=== PATIENT | female | born 1950 | race Caucasian/White ===

== ENCOUNTER 2018-09-15 14:11 | Emergency (ER) | payer OTHER ==
[~2018-09-15] VITALS: Ht 170.2 cm; Wt 80.3 kg
[2018-09-15 14:26] VITALS: BP 142/88
--- NOTE | 2018-09-15 14:45 | NUR ---
STATES SHE HAS BEEN HAVING UTI SYMPTOMS FOR 2 DAYS. DENIES N/V/D; SKIN IS PINK/WARM/DRY; AAOX4 WITH EVEN AND STEADY GAIT; LUNGS CLEAR BL; HR EVEN AND REGULAR; PT DENIES ANY FEVER, CP, SOB, OR COUGH AT THIS TIME; PATIENT STATES PAIN OF 0/10 AT THIS TIME; VSS; PATIENT POSITIONED FOR COMFORT; HOB ELEVATED; BEDRAILS UP X2; BED DOWN. ER MD MADE AWARE OF PT STATUS.
--- NOTE | 2018-09-15 16:00 | NUR ---
NO NEEDS STATED AT THIS TIME.
[2018-09-15 16:36] LABS: APPEARANCE,URINE SLIGHTLY CLOUDY (CLEAR); BILIRUBIN,URINE NEGATIVE (NEGATIVE); BLOOD, URINE NEGATIVE (NEGATIVE); COLOR,URINE YELLOW (YELLOW); LEUKOCYTE ESTERASE ,URINE 2+ (NEGATIVE); NITRITE, URINE POSITIVE (NEGATIVE); UGLUCOSE NEGATIVE (NEGATIVE)
[2018-09-15 16:48] LABS: RBC,URINE 0-5 (RARE) /HPF (0-5); WBC,URINE >25 (MANY) /HPF (0-5)
[2018-09-15 17:52] VITALS: BP 142/88
--- NOTE | 2018-09-15 17:52 | NUR ---
Patient discharged with v/s stable. Written and verbal after care instructions given and explained. Patient alert, oriented and verbalized understanding of instructions. Ambulatory with steady gait. All questions addressed prior to discharge. ID band removed. Patient advised to follow up with PMD. Rx of NITROFURANTOIN given. Patient educated on indication of medication including possible reaction and side effects. Opportunity to ask questions provided and answered.
== END 2018-09-15 17:52 | disposition home or self-care (01) ==
LOC: MED 14:11
DX: N39.0 Urinary tract infection, site not specified (principal); E11.9 Type 2 diabetes mellitus without complications; Z85.43 Personal history of malignant neoplasm of ovary; Z85.850 Personal history of malignant neoplasm of thyroid
CPT/HCPCS: 81001; 82948; 87086; 99283

== ENCOUNTER 2019-06-20 22:13 | Emergency (ER) | payer OTHER ==
[~2019-06-20] VITALS: Ht 167.6 cm; Wt 80.7 kg
[2019-06-20 22:18] VITALS: BP 137/83
--- NOTE | 2019-06-20 22:21 | NUR ---
PT AMBULATED TO BED #3
--- NOTE | 2019-06-20 22:22 | NUR ---
69/F PRESENTED TO ED WITH C/O MUSCLE SPASMS X1 HOUR GENERALIZED TO BODY. NO PAIN REPORTED AT THIS TIME. EVEN UNLABORED BREATH SOUNDS. VITALS WNL. NO SIGNS OF DISTRESS. ABLE TO MAKE NEEDS KNOWN. DAUGHTER AT BEDSIDE. URINE CUP LEFT AT BEDSIDE FOR UA COLLECTION. PMH DM, LIVER CIRRHOSIS, HTN RX- SPIRONOLACTONE, HYDRALAZINE
[2019-06-20] MEDS ORDERED: POTASSIUM CHLORIDE 10 MEQ TABER PO ONE ×2 (22:25→22:30)
[2019-06-20 22:40] LABS: APPEARANCE,URINE CLEAR (CLEAR); BILIRUBIN,URINE NEGATIVE (NEGATIVE); BLOOD, URINE NEGATIVE (NEGATIVE); COLOR,URINE YELLOW (YELLOW); LEUKOCYTE ESTERASE ,URINE NEGATIVE (NEGATIVE); NITRITE, URINE NEGATIVE (NEGATIVE); UGLUCOSE 3+ (NEGATIVE)
[2019-06-20 23:06] VITALS: BP 137/83
--- NOTE | 2019-06-20 23:06 | NUR ---
Patient discharged with v/s stable. Written and verbal after care instructions given and explained. Patient alert, oriented and verbalized understanding of instructions. Ambulatory with steady gait. All questions addressed prior to discharge. ID band removed. Patient advised to follow up with PMD. Rx of POTASSIUM CHLORIDE 20MEQ given. Patient educated on indication of medication including possible reaction and side effects. Opportunity to ask questions provided and answered.
== END 2019-06-20 23:06 | disposition home or self-care (01) ==
LOC: MED 22:13
DX: E87.6 Hypokalemia (principal); Z85.43 Personal history of malignant neoplasm of ovary; Z85.850 Personal history of malignant neoplasm of thyroid; Z86.39 Personal history of other endocrine, nutritional and metabolic disease
CPT/HCPCS: 81003; 99283

== ENCOUNTER 2019-09-04 19:18 | Inpatient (IN) | payer OTHER ==
[~2019-09-04] VITALS: Ht 167.6 cm; Wt 81.2 kg
[2019-09-04 19:40] VITALS: BP 160/68
--- NOTE | 2019-09-04 19:43 | NUR ---
TO LOBBY A/W BED AMBULATORY
--- NOTE | 2019-09-04 20:04 | NUR ---
PT AMBULATED TO BED 1.
--- NOTE | 2019-09-04 20:10 | NUR ---
69 Y/O FEMALE PRESENTS TO ED, C/O RECTAL BLEEDING THAT STARTED TODAY. PT DENIES ANY ABDOMIMAL PAIN. PT STATES BLOOD IS DARK RED. DENIES ANY PAIN URINATING. BS ACTIVE X4 QUADRANTS. DENIES N/V/D. PT VSS. ERMD AWARE. WILL CONTINUE TO MONITOR.
--- NOTE | 2019-09-04 20:15 | NUR ---
69 Y/O FEMALE PRESENTS TO ED, C/O RECTAL BLEEDING THAT STARTED AROUND 1700. PT STATES BLOOD IS DARK RED. PT DENIES ANY ABDOMINAL PAIN. NO N/V/D, PER PT. NO MEDICATIONS TAKEN PRIOR COMING TO ED. PT STATES "THIS IS THE FIRST TIME IT HAS HAPPENED TO ME." PT DENIES ANY DIZZINESS/HEADACHE. PT VSS. PLACED ON MONITOR. ERMD AWARE. WILL CONTINUE TO MONITOR.
[2019-09-04] MEDS ORDERED: NACL 0.9% 1,000 ML IV ONE (20:21)
[2019-09-04] MEDS ORDERED: ONDANSETRON 4 MG/2 ML VIAL IVP ONE (20:25)
[2019-09-04] MEDS ORDERED: MORPHINE SULFATE 4 MG/ML SYR IVP ONE (20:25)
[2019-09-04 20:49] LABS: BASOPHILS % (AUTO) 0.8 % (0.0-2.0); EOSINOPHILS # (AUTO) 0.1 K/uL (0-0.4); EOSINOPHILS % (AUTO) 2.1 % (0.0-4.0); HEMATOCRIT 34.2 % (36-48); HEMOGLOBIN 11.4 g/dL (12.0-16.0); LYMPHOCYTES % (AUTO) 24.9 % (20.5-51.1); MEAN CORPUSCULAR HEMOGLOBIN 32 pg (27-31); MEAN CORPUSCULAR HGB CONC 33 g/dL (33-37); MEAN CORPUSCULAR VOLUME 94.7 fL (80-94); MONOCYTES # (AUTO) 0.3 K/uL (0.8-1.0); MONOCYTES % (AUTO) 8.4 % (1.7-9.3); NEUTROPHILS # (AUTO) 2.6 K/uL (1.8-7.7); NEUTROPHILS % (AUTO) 63.8 % (42.2-75.2); PLATELET COUNT (AUTO) 53 K/uL (140-450); RED BLOOD CELL COUNT(AUTO) 3.61 MIL/uL (4.20-5.40); RED CELL DISTRIBUTION WIDTH 14.7 % (11.6-13.7)
--- NOTE | 2019-09-04 20:57 | NUR ---
URINE COLLECTED AND SENT TO LAB AT THIS TIME
[2019-09-04 21:08] LABS: APPEARANCE,URINE CLEAR (CLEAR); BILIRUBIN,URINE NEGATIVE (NEGATIVE); BLOOD, URINE 3+ (NEGATIVE); COLOR,URINE YELLOW (YELLOW); LEUKOCYTE ESTERASE ,URINE NEGATIVE (NEGATIVE); NITRITE, URINE POSITIVE (NEGATIVE); UGLUCOSE 1+ (NEGATIVE)
[2019-09-04 21:13] LABS: HYALINE CASTS, URINE 0-10 /LPF (None Seen); WBC,URINE 0-5 /HPF (0-5)
[2019-09-04 21:27] LABS: ALBUMIN 3.3 g/dL (3.4-5.0); CARBON DIOXIDE 22.6 mmol/L (21-32); CREATININE 0.7 mg/dL (0.6-1.3)
[2019-09-04 21:28] LABS: PROTHROMBIN TIME 11.2 secs (10.8-13.4)
[2019-09-04 21:51] LABS: ANION GAP 14.6 (8-16); POTASSIUM 4.2 mmol/L (3.5-5.1)
[2019-09-04 21:52] LABS: TOTAL BILIRUBIN 1.9 mg/dL (0.0-1.0)
[2019-09-05] MEDS ORDERED: metroNIDAZOLE 500 MG/NS PREMIX 100 ML IV ONE (01:10)
[2019-09-05] MEDS ORDERED: LEVOFLOXACIN 750 MG/D5W PREMIX 150 ML IV ONE (01:10)
[2019-09-05] MEDS ORDERED: SPIR50TA PO (01:23)
[2019-09-05] MEDS ORDERED: CHOL200035 PO (01:24)
[2019-09-05] MEDS ORDERED: ERGO2000 PO (01:25)
[2019-09-05] MEDS ORDERED: LEVO100P IV (01:26)
[2019-09-05] MEDS ORDERED: FERR325E14 PO (01:26)
[2019-09-05] MEDS: DEXT 5% / NACL 0.45% 1,000 ML IV SCH ×3 (01:26→21:26)
[2019-09-05] MEDS ORDERED: ACETAMINOPHEN 325 MG TAB PO PRN (01:30)
[2019-09-05] MEDS ORDERED: CYCL10TA13 PO (01:30)
[2019-09-05] MEDS ORDERED: LANTUS SUBQ (01:34)
[2019-09-05] MEDS ORDERED: HUM SUBQ (01:36)
[2019-09-05 02:51] LABS: BARBITURATE, URINE NEG. ng/ml (NEG <=200); BENZODIAZEPINE, URINE NEG. ng/mL (NEG <=200); CANNABINOID, URINE POS. ng/mL (NEG <=50); COCAINE, URINE NEG. ng/mL (NEG <=300); OPIATE, URINE NEG. ng/mL (NEG <=2000); PHENCYCLIDINE SCREEN,URINE NEG. ng/mL (NEG <=25)
[2019-09-05 03:04] LABS: CHOL/HDL RATIO 3.4 (1-4.5); MAGNESIUM 1.7 mg/dL (1.8-2.4); THYROID STIMULATING HORMONE 5.1 uIU/mL (0.34-3.74)
--- NOTE | 2019-09-05 03:27 | NUR ---
X-Ray at bedside.
--- NOTE | 2019-09-05 03:50 | NUR ---
PT ADMITTED TO [facility] ROOM 126B. TRANSFERRED PT VIA GURNEY; STABLE CONDITION. NOTIFIED RN OF FLAGYL STILL INFUSING. REPORT GIVEN TO RECEIVING RN. TRANSFER OF CARE AT THIS TIME.
[2019-09-05 04:00] VITALS: BP 158/76
--- NOTE | 2019-09-05 04:00 | NUR ---
Patient's Plan of Care was discussed and reviewed with ALLERGIST: MARGARET MONCADA.
--- NOTE | 2019-09-05 04:00 | NUR ---
Admitted from ER TO TELEMETRY UNIT, with chief complaint of RECTAL BLEEDING, THAT STARTED YESTERDAY AT 1700, DESCRIBED COLORED RED, ABLE TO USED 2 PADS. 69 y/o ,Female, Cooperative, AWAKE, A/OX4. RESPIRATION EVEN AND UNLABORED. AMBULATORY BY HERSELF. HEAD TO TOE ASSESSMENT DONE WITH CHARGE NURSE CHRISTINE, NOTED HEMATOMA AT THE LEFT LATERAL SIDE OF THE BACK DUE TO S/P FALL IN THE BATHROOM LAST MONDAY WHEN PATIENT SLIPPED DUE TO WATER ON THE FLOOR. DENIES PAIN 0/10. oriented to call light, bed, phone,television, bathroom, smoking policy, visiting hours, procedures, ID bracelet on. Belongings list checked.
[2019-09-05 04:33] LABS: PHOSPHORUS 3.4 mg/dL (2.5-4.9)
[2019-09-05] MEDS: HYDROcodone/APAP 7.5/325 MG 1 TAB PO PRN ×4 (05:45→22:20)
--- NOTE | 2019-09-05 05:45 | NUR ---
VOMITED SMALL AMOUNT OF SOLIDS, MEDICATED WITH ZOFRAN BY MORGAN PALACIO.
[2019-09-05] MEDS: ONDANSETRON 4 MG/2 ML VIAL IVP PRN (05:46)
--- NOTE | 2019-09-05 06:45 | NUR ---
NO N/V NOTED. WILL ENDORSE TO AM SHIFT NURSE FOR CONTINUITY OF CARE.
--- NOTE | 2019-09-05 07:20 | NUR ---
RECEIVED PT FROM TRAVELING CLERK NURSEMARGARET, PT IS AWAKE AND SEATED ON THE BED WITH SIDE RAISL UP AND CALL LIGHT WITHIN REACH, IV LINE ON THE RT FA G. 22 WITH D5 1/2 NS INFUSING AT 50ML/HR, INTACT, PT VERBALIZED A TOLERABLE BACK PAIN OF 3/0, NO OTHER UNTOWARD S/S NOTED, WILL MONITOR PT.
--- NOTE | 2019-09-05 07:25 | NUR ---
DR. NAVARRETE CAME TO PT'S ROOM AND IS TALKING TO PT NOW REGARDING PLAN OF CARE.
[2019-09-05 08:00] VITALS: BP 153/68
[2019-09-05] MEDS: FAMOTIDINE 20 MG TAB PO SCH (08:52)
[2019-09-05] MEDS: DOCUSATE SODIUM 100 MG GELCAP PO SCH ×2 (08:52→21:57)
--- NOTE | 2019-09-05 08:52 | NUR ---
PT IS AWAKE AND RESTING ON THE BED, ORAL AM MEDICATIONS WERE GIVEN AND TOLERATED IT, WILL MONITOR PT.
--- NOTE | 2019-09-05 09:01 | NUR ---
PATIENT HAS BEEN SCREENED AND CATEGORIZED MODERATE NUTRITION RISK. PATIENT WILL BE SEEN WITHIN 3-5 DAYS OF ADMISSION. 09/07/19 09/09/[address]
--- NOTE | 2019-09-05 10:45 | NUR ---
PT IS AWAKE AND TALKING TO DAUGHTER NOW AND DENIES PAIN.
[2019-09-05 12:00] VITALS: BP 128/75
--- NOTE | 2019-09-05 12:13 | NUR ---
Late entry. Confirmed with RN that Levofloxacin IV completed at 0320
[2019-09-05] MEDS: metroNIDAZOLE 500 MG/NS PREMIX 100 ML IV SCH ×2 (12:38→21:58)
--- NOTE | 2019-09-05 12:38 | NUR ---
PT WAS GIVEN FLAGYL VIA PIGGYBACK, DAUGHTER ON THE BEDSIDE, WILL MONITOR PT.
[2019-09-05] MEDS ORDERED: DEXTROSE 50% 50 ML SYR IVP PRN (13:20)
[2019-09-05] MEDS ORDERED: INSULIN LISPRO SLIDING SCALE 100 UNITS/ML VIAL SUBQ PRN (13:20)
[2019-09-05] MEDS ORDERED: MAG SULF 2000 MG/WATER PREMIX 50 ML IV SCH (15:00)
[2019-09-05 16:00] VITALS: BP 136/66
[2019-09-05] MEDS: BLOOD GLUCOSE MONITORING 1 DEV DEV FS SCH ×2 (17:20→21:58)
--- NOTE | 2019-09-05 17:20 | NUR ---
PT WAS GIVEN MAGNESIUM SULFATE 2GM NOW VIA IV FOR MG LEVEL OF 1.6, BLOOD GLUCOSWE CHECK DONE AND IS 136 AND NO INSULIN COVERAGE NEEDED. WILL MONITOR PT.
[2019-09-05 17:44] LABS: MONOCYTES # (AUTO) 0.3 K/uL (0.8-1.0); PLATELET COUNT (AUTO) 45 K/uL (140-450); RED CELL DISTRIBUTION WIDTH 14.8 % (11.6-13.7); WHITE BLOOD COUNT (AUTO) 3.4 K/uL (4.8-10.8)
[2019-09-05 17:52] LABS: BASOPHILS % (AUTO) 0.8 % (0.0-2.0); EOSINOPHILS # (AUTO) 0.1 K/uL (0-0.4); EOSINOPHILS % (AUTO) 2.2 % (0.0-4.0); HEMOGLOBIN 10.6 g/dL (12.0-16.0); LYMPHOCYTES # (AUTO) 0.8 K/uL (2.5-16.5); MEAN CORPUSCULAR HEMOGLOBIN 32 pg (27-31); MEAN CORPUSCULAR HGB CONC 34 g/dL (33-37); MEAN CORPUSCULAR VOLUME 94.4 fL (80-94); MONOCYTES % (AUTO) 8.7 % (1.7-9.3); NEUTROPHILS # (AUTO) 2.2 K/uL (1.8-7.7); NEUTROPHILS % (AUTO) 65.3 % (42.2-75.2); RED BLOOD CELL COUNT(AUTO) 3.28 MIL/uL (4.20-5.40)
[2019-09-05 17:57] LABS: ANION GAP 13.7 (8-16); CARBON DIOXIDE 24.1 mmol/L (21-32); CREATININE 0.7 mg/dL (0.6-1.3); POTASSIUM 3.8 mmol/L (3.5-5.1)
[2019-09-05 18:01] LABS: MAGNESIUM 1.5 mg/dL (1.8-2.4); PHOSPHORUS 3.3 mg/dL (2.5-4.9)
--- NOTE | 2019-09-05 19:15 | NUR ---
ENDORSED PT TO TUMBLING AND ROLLING SUPERVISOR REGISTRY NURSE FOR CONTINUITY OF CARE. PT IS TALKING TO DR. ZEPEDA NOW.
[2019-09-05 20:00] VITALS: BP 127/51
[2019-09-05] MEDS ORDERED: BISACODYL 5 MG TABEC PO SCH (20:00)
[2019-09-05] MEDS ORDERED: SUPREP BOWEL PREP KIT 354 ML SOLN.RECON PO SCH (20:30)
[2019-09-05] MEDS ORDERED: LACTULOSE 20 GM/30 ML UDC PO SCH (20:30)
[2019-09-05] MEDS ORDERED: SUPREP BOWEL PREP KIT 354 ML SOLN.RECON PO ONE (21:00)
[2019-09-05] MEDS: CYCLOBENZAPRINE 10 MG TAB PO SCH (21:57)
[2019-09-05] MEDS: SPIRONOLACTONE 25 MG TAB PO SCH (21:57)
[2019-09-05] MEDS ORDERED: SODIUM PHOSPHATE 118 ML ENEM RC SCH (23:00)
[2019-09-06] MEDS ORDERED: MAGNESIUM CITRATE 300 ML BTL PO SCH (01:00)
[2019-09-06] MEDS ORDERED: BISACODYL 5 MG TABEC PO SCH ×2 (01:00→07:30)
[2019-09-06] MEDS ORDERED: LEVOFLOXACIN 750 MG/D5W PREMIX 150 ML IV SCH (02:00)
[2019-09-06 04:00] VITALS: BP 142/68
[2019-09-06] MEDS: ONDANSETRON 4 MG/2 ML VIAL IVP PRN (04:03)
[2019-09-06] MEDS: BLOOD GLUCOSE MONITORING 1 DEV DEV FS SCH ×2 (05:16→11:30)
[2019-09-06] MEDS: metroNIDAZOLE 500 MG/NS PREMIX 100 ML IV SCH ×2 (05:17→13:19)
[2019-09-06] MEDS ORDERED: LEVOTHYROXINE 0.025 MG TAB ONE (06:21)
[2019-09-06] MEDS ORDERED: LEVOTHYROXINE 0.1 MG TAB ONE (06:22)
[2019-09-06] MEDS ORDERED: LEVOTHYROXINE 0.112 MG TAB PO SCH (06:30)
[2019-09-06] MEDS ORDERED: LEVOTHYROXINE 0.1 MG, LEVOTHYROXINE 0.025 MG PO SCH ×2 (06:30)
--- NOTE | 2019-09-06 07:00 | NUR ---
RECEIVE REPORT FROM NIGHT NURSE, PT IS STABLE, RESPIRATIONS ARE EVEN AND UNLABORED, IV INTACT, RUNNING D51/2NS AT 50 ML/H, INTRODUCE SELF, SAFETY MEASURES IN PLACE.
[2019-09-06] MEDS ORDERED: diphenhydrAMINE 50 MG/ML VIAL ONE ×2 (07:09→11:45)
[2019-09-06] MEDS ORDERED: MIDAZOLAM 2 MG/2 ML VIAL ONE ×2 (07:09→11:45)
[2019-09-06] MEDS ORDERED: fentaNYL 0.05 MG/ML VIAL ONE ×2 (07:09→11:46)
--- NOTE | 2019-09-06 07:40 | NUR ---
GAVE PT ORDERED MEDICATION, PT EDUCATION GIVEN, PT TOLERATED WELL
[2019-09-06] MEDS ORDERED: SUPREP BOWEL PREP KIT 354 ML SOLN.RECON PO SCH (07:45)
[2019-09-06 08:00] VITALS: BP 142/67
[2019-09-06] MEDS ORDERED: LEVOTHYROXINE SODIUM 100 MCG VIAL IV SCH (08:00)
[2019-09-06] MEDS ORDERED: FERROUS SULFATE 325 MG TABEC PO SCH (08:00)
[2019-09-06] MEDS ORDERED: INSULIN LANTUS 100 UNITS/ML 10 ML VIAL SUBQ SCH (09:00)
[2019-09-06] MEDS: DOCUSATE SODIUM 100 MG GELCAP PO SCH (09:13)
[2019-09-06] MEDS: CYCLOBENZAPRINE 10 MG TAB PO SCH (09:13)
[2019-09-06] MEDS: SPIRONOLACTONE 25 MG TAB PO SCH (09:13)
[2019-09-06] MEDS: FAMOTIDINE 20 MG TAB PO SCH (09:14)
--- NOTE | 2019-09-06 09:50 | NUR ---
GAVE PT ORDERED MEDICATION, PT EDUCATION GIVEN, PT TOLERATED IT WELL
[2019-09-06] MEDS: DEXT 5% / NACL 0.45% 1,000 ML IV SCH (10:49)
[2019-09-06] MEDS ORDERED: MAG SULF 2000 MG/WATER PREMIX 50 ML IV ONE (11:35)
[2019-09-06] MEDS: HYDROcodone/APAP 7.5/325 MG 1 TAB PO PRN (11:37)
--- NOTE | 2019-09-06 11:55 | NUR ---
PT OFF UNIT FOR COLONOSCOPY
[2019-09-06 12:00] VITALS: BP 145/80
[2019-09-06] MEDS ORDERED: SODIUM PHOSPHATE 118 ML ENEM RC SCH (12:00)
--- NOTE | 2019-09-06 12:15 | NUR ---
PT BACK IN ROOM, PT IS STABLE, WILL CONTINUE TO MONITOR
[2019-09-06] MEDS ORDERED: MIDAZOLAM 2 MG/2 ML VIAL IV ONE (12:35)
[2019-09-06] MEDS ORDERED: fentaNYL 0.05 MG/ML VIAL IVP ONE (12:35)
[2019-09-06 13:27] LABS: ANION GAP 15.1 (8-16); CARBON DIOXIDE 22.2 mmol/L (21-32); CREATININE 0.8 mg/dL (0.6-1.3); POTASSIUM 4.3 mmol/L (3.5-5.1)
[2019-09-06 13:32] LABS: MAGNESIUM 1.9 mg/dL (1.8-2.4); PHOSPHORUS 3.1 mg/dL (2.5-4.9)
--- NOTE | 2019-09-06 15:05 | NUR ---
LANCE CREWMEMBER/MLRS SERGEANT assessment/discharge plan High Risk DC Screen Yes Name: Tori Reyna Home Relationship: daughter Pre-Admission Living Arrangements: Lives with Other Other: son: Ricardo Reyna and graddaughter Prior ADL Independent Current Home Health Name/Tel: N/A Current DME/02 Name/Tel: N/A Current Hospice Name/Tel: N/A Current Dialysis Name/Tel: N/A Healthcare Decision Maker: Patient Advance Directive No Information Taught: Community Resources Person Taught: Children Patient Teaching Tools: Community Resources Verbal Factors Affecting Learning: None Participation Level: Active Evaluation: Gestures Understanding Verbalizes Understanding Educator: CINDI Powell Discipline: Case Mgt/Social Svcs Tentative Discharge Plan Summary: Patient is a 69 year old female admitted for back pain. I met with patient and patient's daughter Tori Reyna at bedside. Patient alert and oriented x4. Patient lives at home with her son Ricardo and granddaughter. Patient plans to return home upon discharge. Patient goes to [place] [phone] for medical care and is considering inquiring if Dereje Nunez can be her pcp. She does not have any difficulty filling her prescriptions at pharmacy. He stated she thinks she has been depressed due her 's loss 1 year ago. She denied SI and HI. She is not taking medication for depression or receiving counseling/mental health services. I provided her with education on [facility] www.[employer].org for community resources including counseling/mental health services. She denied alcohol/substance abuse. They do not have any questions/concerns at this time. I provided Tori with my contact information. Delicatessen Slicer and/or Gel Coater will follow up as needed. Signature: CINDI Powell Date: Sep 06, 2019
--- NOTE | 2019-09-06 16:19 | NUR ---
PATIENT APPEARS RELAXED WALKING IN ROOM. ALERT AND ORIENTED. DISCHARGE INSTRUCTIONS PROVIDED TO THE PATIENT AND THE FAMILY. INSTRUCTED TO FOLLOW UP WITHIN 1-2 WEEKS WITH PCP. VERBALIZED UNDERSTANDING. REMOVED IV CANNULA, NO BLEEDING NOTED FROM THE SITE. COVERED WITH DRESSING. ID BAND REMOVED. BELONGINGS TAKEN WITH PATIENT AND FAMILY. WHEEL CHAIRED TO PRIVATE VEHICLE BY PRIMARY NURSE THIAGO ON STABLE CONDITION.
== END 2019-09-06 16:30 | disposition home or self-care (01) | DRG 378 ==
LOC: MED 19:18 → MMU 09-05 01:32
PROVIDERS: ADMIT Family Medicine; ATTEND Family Medicine
PROC: 0DJD8ZZ Inspection of Lower Intestinal Tract, Via Natural or Artificial Opening Endoscopic (ICD-10-PCS; principal; 2019-09-06 08:00)
DX: K57.31 Diverticulosis of large intestine without perforation or abscess with bleeding (principal); D68.59 Other primary thrombophilia; R18.8 Other ascites; E11.65 Type 2 diabetes mellitus with hyperglycemia; K72.90 Hepatic failure, unspecified without coma; D64.9 Anemia, unspecified; E03.9 Hypothyroidism, unspecified; E11.9 Type 2 diabetes mellitus without complications; K62.5 Hemorrhage of anus and rectum; K74.60 Unspecified cirrhosis of liver; K52.9 Noninfective gastroenteritis and colitis, unspecified; E83.42 Hypomagnesemia; K76.0 Fatty (change of) liver, not elsewhere classified; Z90.710 Acquired absence of both cervix and uterus; Z85.850 Personal history of malignant neoplasm of thyroid; Z83.3 Family history of diabetes mellitus; Z82.49 Family history of ischemic heart disease and other diseases of the circulatory system; Z82.3 Family history of stroke
CPT/HCPCS: 36415; 71045; 80048; 80053; 80305; 81001; 82140; 82948; 83036; 83605; 83690; 83735; 83880; 84100; 84443; 84484; 85025; 85610; 85730; 86886; 86900; 86901; 87040; 87081; 96361; 96365; 96375; 99285; J1200; J1815; J1956; J2250; J2270; J2405; J3010; J3475; J3490; J7030; Q0092

== ENCOUNTER 2019-12-03 16:23 | Emergency (ER) | payer OTHER ==
[~2019-12-03] VITALS: Ht 170.2 cm; Wt 76.7 kg
[~2019-12-03 16:23] MED LIST: CHOL200035 PO; CYCL10TA13 PO; ERGO2000 PO; FERR325E14 PO; HUM SUBQ; LANTUS SUBQ; LEVO100P IV; SPIR50TA PO
[2019-12-03 16:34] VITALS: BP 157/75
[2019-12-03] MEDS ORDERED: NACL 0.9% 1,000 ML IV SCH (17:04)
[2019-12-03 17:42] LABS: BASOPHILS % (AUTO) 0.5 % (0.0-2.0); HEMATOCRIT 34.8 % (36-48); HEMOGLOBIN 12.1 g/dL (12.0-16.0); LYMPHOCYTES # (AUTO) 0.6 K/uL (2.5-16.5); LYMPHOCYTES % (AUTO) 17.8 % (20.5-51.1); MEAN CORPUSCULAR HEMOGLOBIN 33 pg (27-31); MEAN CORPUSCULAR HGB CONC 35 g/dL (33-37); MEAN CORPUSCULAR VOLUME 95.5 fL (80-94); MONOCYTES # (AUTO) 0.4 K/uL (0.8-1.0); MONOCYTES % (AUTO) 11.5 % (1.7-9.3); NEUTROPHILS # (AUTO) 2.3 K/uL (1.8-7.7); NEUTROPHILS % (AUTO) 69.2 % (42.2-75.2); PLATELET COUNT (AUTO) 38 K/uL (140-450); RED BLOOD CELL COUNT(AUTO) 3.65 MIL/uL (4.20-5.40); RED CELL DISTRIBUTION WIDTH 13.9 % (11.6-13.7); WHITE BLOOD COUNT (AUTO) 3.4 K/uL (4.8-10.8)
[2019-12-03 17:55] LABS: PROTHROMBIN TIME 11.9 secs (10.8-13.4)
[2019-12-03 18:02] LABS: ANION GAP 11.4 (8-16); CARBON DIOXIDE 24.5 mmol/L (21-32); CREATININE 0.9 mg/dL (0.6-1.3); POTASSIUM 3.9 mmol/L (3.5-5.1); TOTAL BILIRUBIN 2.3 mg/dL (0.0-1.0)
[2019-12-03 19:10] VITALS: BP 152/70
== END 2019-12-03 19:11 | disposition home or self-care (01) ==
LOC: MED 16:23
DX: K64.9 Unspecified hemorrhoids (principal); E11.9 Type 2 diabetes mellitus without complications; Z79.899 Other long term (current) drug therapy; Z90.49 Acquired absence of other specified parts of digestive tract; Z85.43 Personal history of malignant neoplasm of ovary; Z79.4 Long term (current) use of insulin; Z90.710 Acquired absence of both cervix and uterus; Z85.850 Personal history of malignant neoplasm of thyroid
CPT/HCPCS: 36415; 80053; 83690; 85025; 85610; 85730; 86886; 86900; 86901; 99283; J7030

== ENCOUNTER 2021-03-01 12:39 | Emergency (ER) | payer OTHER ==
[~2021-03-01] VITALS: Ht 167.6 cm; Wt 78.0 kg
[2021-03-01 12:46] VITALS: BP 137/65
--- NOTE | 2021-03-01 12:56 | NUR ---
PATIENT AMBULATED TO BED 09
--- NOTE | 2021-03-01 13:09 | NUR ---
70/F presents to ED with c/o abdominal pain. Patient states since yesterday she has been having 6/10 constant lower abdominal pain that is non radiating, accompanied with nausea and states she had one episode of vomiting yesterday, denies diarrhea. Patient states she is prescribed Trulicity, stating she has the same symptoms every time she takes it, states she started "three weeks ago." Patient denies taking anything at home for pain, placed in gown. Denies dysuria or hematuria.
--- NOTE | 2021-03-01 13:38 | NUR ---
LAB AT BEDSIDE
[2021-03-01 14:00] LABS: BASOPHILS # (AUTO) 0.1 K/uL (0.00-0.22); BASOPHILS % (AUTO) 0.6 % (0.0-2.0); EOSINOPHILS # (AUTO) 0.1 K/uL (0-0.4); EOSINOPHILS % (AUTO) 1.2 % (0.0-4.0); HEMATOCRIT 36.4 % (36-48); HEMOGLOBIN 12.7 g/dL (12.0-16.0); LYMPHOCYTES # (AUTO) 1.5 K/uL (2.5-16.5); LYMPHOCYTES % (AUTO) 17.4 % (20.5-51.1); MEAN CORPUSCULAR HEMOGLOBIN 35 pg (27-31); MEAN CORPUSCULAR HGB CONC 35 g/dL (33-37); MEAN CORPUSCULAR VOLUME 99.1 fL (80-94); MONOCYTES # (AUTO) 0.8 K/uL (0.8-1.0); MONOCYTES % (AUTO) 9.2 % (1.7-9.3); NEUTROPHILS # (AUTO) 6.2 K/uL (1.8-7.7); NEUTROPHILS % (AUTO) 71.6 % (42.2-75.2); PLATELET COUNT (AUTO) 64 K/uL (140-450); RED BLOOD CELL COUNT(AUTO) 3.67 MIL/uL (4.20-5.40); WHITE BLOOD COUNT (AUTO) 8.6 K/uL (4.8-10.8)
[2021-03-01 14:09] LABS: APPEARANCE,URINE CLEAR (CLEAR); BILIRUBIN,URINE NEGATIVE (NEGATIVE); BLOOD, URINE NEGATIVE (NEGATIVE); COLOR,URINE YELLOW (YELLOW); LEUKOCYTE ESTERASE ,URINE NEGATIVE (NEGATIVE); NITRITE, URINE NEGATIVE (NEGATIVE); UGLUCOSE NEGATIVE (NEGATIVE)
[2021-03-01 14:28] LABS: ALBUMIN 3.8 g/dL (3.4-5.0); ANION GAP 13.1 (8-16); CARBON DIOXIDE 25.1 mmol/L (21-32); CREATININE 0.9 mg/dL (0.6-1.3); POTASSIUM 4.2 mmol/L (3.5-5.1); TOTAL BILIRUBIN 5.5 mg/dL (0.0-1.0)
[2021-03-01 16:39] LABS: FREE T4 (FREE THYROXINE) 0.95 ng/dL (0.76-1.46); THYROID STIMULATING HORMONE 18.25 uIU/mL (0.34-3.74)
[2021-03-01 17:03] VITALS: BP 131/50
--- NOTE | 2021-03-01 17:04 | NUR ---
Patient discharged with v/s stable. Written and verbal after care instructions given and explained. Patient verbalized understanding. Ambulatory with steady gait. All questions addressed prior to discharge. Advised to follow up with PMD.
== END 2021-03-01 17:04 | disposition home or self-care (01) ==
LOC: MED 12:39
DX: R10.9 Unspecified abdominal pain (principal); R11.0 Nausea; E11.9 Type 2 diabetes mellitus without complications; Z87.448 Personal history of other diseases of urinary system; Z85.43 Personal history of malignant neoplasm of ovary
CPT/HCPCS: 36415; 80053; 81003; 83690; 84439; 84443; 85025; 99284

== ENCOUNTER 2021-03-08 09:27 | Inpatient (IN) | payer OTHER ==
[~2021-03-08] VITALS: Ht 167.6 cm; Wt 78.0 kg
--- NOTE | 2021-03-08 09:32 | NUR ---
Patient ambulated with steady gait to bed 9.
[2021-03-08 09:39] VITALS: BP 154/73
--- NOTE | 2021-03-08 09:49 | NUR ---
DR PATTERSON BEDSIDE EVAULUTING PT
--- NOTE | 2021-03-08 09:49 | NUR ---
70 Y/O F BIB DAUGHTER FROM HOME, C/O TREMBLING, GENERALIZED WEAKNESS, STARTING TO FORGET BASIC NEEDS SINCE YESTERDAY. UPON ASSESSMENT, PT HAS NO FACIAL DEFICIT, UPPER AND LOWER EXTREMITIES. PT IS CURRENTLY A&OX3 TO NAME, , TIME. PT STATES SHE HAS BEEN FEELING NAUSEA AND HAS EXPERIENCED DIARRHEA X1 TIME. BLOOD SUGAR TAKEN BEDSIDE AND 216. MADE AWARE PMH: DM2, LIVER CIRRHOSIS, HYPOTHYROID MED: LEVOTHYROXINE NKA
--- NOTE | 2021-03-08 09:57 | NUR ---
Pt ambulated to restroom for UA collection.
--- NOTE | 2021-03-08 10:01 | NUR ---
Pt ambulated to ER bed 9.
--- NOTE | 2021-03-08 10:05 | NUR ---
PT TAKEN TO CT VIA W/C
--- NOTE | 2021-03-08 10:15 | NUR ---
PT RETURNED FROM CT VIA W/C
--- NOTE | 2021-03-08 10:34 | NUR ---
Blood sample, urine sample collected, walked to lab and handed to CPT Dewayne.
[2021-03-08 10:40] LABS: APPEARANCE,URINE CLEAR (CLEAR); BASOPHILS % (AUTO) 0.7 % (0.0-2.0); BILIRUBIN,URINE NEGATIVE (NEGATIVE); BLOOD, URINE TRACE-I (NEGATIVE); COLOR,URINE YELLOW (YELLOW); EOSINOPHILS % (AUTO) 1.1 % (0.0-4.0); HEMATOCRIT 38.4 % (36-48); HEMOGLOBIN 13.4 g/dL (12.0-16.0); LEUKOCYTE ESTERASE ,URINE NEGATIVE (NEGATIVE); LYMPHOCYTES # (AUTO) 0.5 K/uL (2.5-16.5); LYMPHOCYTES % (AUTO) 12.8 % (20.5-51.1); MEAN CORPUSCULAR HEMOGLOBIN 35 pg (27-31); MEAN CORPUSCULAR HGB CONC 35 g/dL (33-37); MEAN CORPUSCULAR VOLUME 99.5 fL (80-94); MONOCYTES # (AUTO) 0.2 K/uL (0.8-1.0); MONOCYTES % (AUTO) 5.7 % (1.7-9.3); NEUTROPHILS # (AUTO) 3.4 K/uL (1.8-7.7); NEUTROPHILS % (AUTO) 79.7 % (42.2-75.2); NITRITE, URINE NEGATIVE (NEGATIVE); PH,URINE 6.5 (5.0-9.0); PLATELET COUNT (AUTO) 52 K/uL (140-450); RED BLOOD CELL COUNT(AUTO) 3.86 MIL/uL (4.20-5.40); RED CELL DISTRIBUTION WIDTH 15.1 % (11.6-13.7); UGLUCOSE NEGATIVE (NEGATIVE); WHITE BLOOD COUNT (AUTO) 4.2 K/uL (4.8-10.8)
--- NOTE | 2021-03-08 10:50 | NUR ---
Pt states she is feeling nauseous, provided with emesis bag made aware.
[2021-03-08] MEDS ORDERED: ONDANSETRON 4 MG/2 ML VIAL IVP ONE (10:55)
[2021-03-08 11:06] LABS: ALBUMIN 3.6 g/dL (3.4-5.0); ANION GAP 11.6 (8-16); CREATININE 0.9 mg/dL (0.6-1.3); POTASSIUM 4.6 mmol/L (3.5-5.1); THYROID STIMULATING HORMONE 26.36 uIU/mL (0.34-3.74); TOTAL BILIRUBIN 2.6 mg/dL (0.0-1.0)
[2021-03-08 11:11] LABS: RBC,URINE 0-5 /HPF (0-5); WBC,URINE 0-5 /HPF (0-5)
[2021-03-08] MEDS ORDERED: LACTULOSE 20 GM/30 ML UDC PO ONE (11:35)
--- NOTE | 2021-03-08 12:34 | NUR ---
PT RESTING BEDSIDE WITH EYES CLOSED AND LIGHTS OFF. EQUAL CHEST RISE AND FALL NOTED. DAUGHTER BEDSIDE WITH PT. BED IN LOWEST POSITION. SIDERAIL X1 UP. VITAL SIGNS STABLE. WILL CONTINUE TO MONITOR
--- NOTE | 2021-03-08 12:58 | NUR ---
PT GIVEN WATER BEDSIDE. PT RESTING
--- NOTE | 2021-03-08 14:00 | NUR ---
PT PROVIDED ICE CHIPS BEDSIDE. PT RESTING BEDSIDE WITH DAUGHTER. VITAL SIGNS STABLE. WILL CONTINUE TO MONITOR
[2021-03-08] MEDS ORDERED: NON-FORMULARY ITEM (Ergocalciferol (Vitamin D2) (Vitamin D2) 50,000 IU) PO SCH (15:10)
[2021-03-08] MEDS ORDERED: MAG SULF 2000 MG/WATER PREMIX 50 ML IV PRN (15:10)
[2021-03-08] MEDS ORDERED: POTASSIUM CHLORIDE 10 MEQ TABER PO PRN (15:10)
[2021-03-08] MEDS ORDERED: DEXTROSE 50% 50 ML SYR IVP PRN (15:10)
--- NOTE | 2021-03-08 15:17 | NUR ---
Pt resting eyes closed, visible equal rise and fall of chest, VSS, will continue to monitor.
[2021-03-08] MEDS: BLOOD GLUCOSE MONITORING 1 DEV DEV FS SCH ×2 (16:38→20:27)
--- NOTE | 2021-03-08 16:41 | NUR ---
PT STABLE BEDSIDE. CURRENT GLUCOSE 147 (WITHIN SLIDING SCALE). PROVIDED PT WITH PUDDING. VITAL SIGNS STABLE. WILL CONTUINE TO MONITOR. BED IN LOWEST POSITION WITH SIDERAILS X2 UP. DAUGHTER BEDSIDE WITH PT
--- NOTE | 2021-03-08 17:01 | NUR ---
RECEIVED REPORT FROM ER NURSE SHANI, PT ISAAOX3, ON ROOM AIR, SKIN INTACT IV ON RIGHT FA G20 SALINE LOCK, AMBULATORY WITH ASSIST LAST BLOOD SUGAR 147 LAST BOWEL MOVEMENT TODAY, LACTULOSE GIVEN 15GRMS, CONTINENT.COMPLETE COVID VACCINE.
[2021-03-08 17:20] VITALS: BP 123/64
--- NOTE | 2021-03-08 17:20 | NUR ---
PT BROUGHT TO THE UNIT VIA GURNEY ASSISTED TO BED AND CHANGED PT CLOTHES PUT ON SOCKS, CHECK VITAL SIGNS BP 123/64 MA 69 RR 20 TEMP 97.7 O2 99%. ORIENTED TO ROOM SAFETY MEASURES IN PLACE AND CALL LIGHT WITHIN REACH. WILL CONTINUE TO MONITOR.
--- NOTE | 2021-03-08 17:25 | NUR ---
MRSA NARES DONE AND SENT TO LAB.
--- NOTE | 2021-03-08 17:25 | NUR ---
Patient will be admitted to care of DR. AKBAR ARRIAZA. Admited to TELE. Will go to room 110B. Belongings list completed. Report to MORGAN BEAVERS.
--- NOTE | 2021-03-08 18:11 | NUR ---
PT PCP NOTIFIED VIA PHONE DR SILVA [phone] LEFT VOICE,MAIL THAT PT WAS ADMITTED FOR HEPATIC ENCEPHALOPATY.AND FAMILY NOTIFIED AT BEDSIDE.
--- NOTE | 2021-03-08 19:27 | NUR ---
RECEIVED PATIENT FROM AM SHIFT NURSE FOR CONTINUITY OF CARE. ALERT AND ABLE TO MAKE NEEDS KNOWN. RESPIRATIONS EVEN, UNLABORED. NO S/S RESPIRATORY DISTRESS. S1/S2 AUSCULTATED. TELE MONITORING. SKIN WARM, DRY. SALINE LOCK TO RIGHT FOREARM 20G PATENT/INTACT. NO C/O PAIN. ABDOMEN ROUNDED, NONTENDER. BOWEL SOUNDS ACTIVE x4 QUADRANTS. PATIENT IS CONTINENT OF B/B. FAMILY AT BEDSIDE. PLAN OF CARE DISCUSSED. CALL LIGHT IN REACH. SAFETY PRECAUTIONS IN PLACE.
--- NOTE | 2021-03-08 19:27 | NUR ---
ENDORSED TO NIGHT NURSE FOR CONTINUITY OF CARE.PT IS STABLE.
[2021-03-08 20:00] VITALS: BP 128/66
[2021-03-08] MEDS: INSULIN LISPRO SLIDING SCALE 100 UNITS/ML VIAL SUBQ PRN (20:27)
[2021-03-08] MEDS: LACTULOSE 20 GM/30 ML UDC PO SCH (20:33)
[2021-03-08] MEDS: CYCLOBENZAPRINE 10 MG TAB PO SCH (20:33)
[2021-03-08] MEDS: SPIRONOLACTONE 25 MG TAB PO SCH (20:33)
--- NOTE | 2021-03-08 21:30 | NUR ---
DUE MEDS GIVEN. PATIENT RESTING COMFORTABLY IN BED. NO S/S RESPIRATORY DISTRESS. NO C/O PAIN. CALL LIGHT IN REACH. SAFETY PRECAUTIONS IN PLACE.
--- NOTE | 2021-03-08 22:14 | NUR ---
PER PATIENT REQUEST, LEFT A MESSAGE FOR HER GROUP TESTER DR DORSEY AT [phone] REGARDING HER ADMISSION.
--- NOTE | 2021-03-08 23:44 | NUR ---
ALL NEEDS ANTICIPATED AND MET. PATIENT RESTING COMFORTABLY IN BED TALKING TO FAMILY ON THE PHONE. NO S/S RESPIRATORY DISTRESS. NO C/O PAIN. CALL LIGHT IN REACH. SAFETY PRECAUTIONS IN PLACE.
[2021-03-09] VITALS: BP 114/57
--- NOTE | 2021-03-09 01:00 | NUR ---
MADE ROUNDS. PATIENT IS ASLEEP. NO S/S RESPIRATORY DISTRESS. CALL LIGHT IN REACH AT ALL TIMES. SAFETY PRECAUTIONS IN PLACE.
--- NOTE | 2021-03-09 03:06 | NUR ---
PATIENT IS ASLEEP. NO S/S RESPIRATORY DISTRESS. CALL LIGHT IN REACH AT ALL TIMES. SAFETY PRECAUTIONS IN PLACE.
[2021-03-09 04:00] VITALS: BP 105/58
--- NOTE | 2021-03-09 05:02 | NUR ---
PATIENT RESTING COMFORTABLY IN BED. NO S/S RESPIRATORY DISTRESS. CALL LIGHT IN REACH. SAFETY PRECAUTIONS IN PLACE.
[2021-03-09] MEDS ORDERED: LEVOTHYROXINE 0.075 MG TAB PO SCH (06:30)
[2021-03-09 07:06] LABS: ANION GAP 13.2 (8-16); CARBON DIOXIDE 21.7 mmol/L (21-32); CREATININE 0.8 mg/dL (0.6-1.3); MAGNESIUM 1.8 mg/dL (1.8-2.4); PHOSPHORUS 3.4 mg/dL (2.5-4.9); POTASSIUM 3.9 mmol/L (3.5-5.1)
[2021-03-09 07:11] LABS: BASOPHILS % (AUTO) 0.9 % (0.0-2.0); EOSINOPHILS # (AUTO) 0.1 K/uL (0-0.4); EOSINOPHILS % (AUTO) 2.6 % (0.0-4.0); HEMATOCRIT 33.9 % (36-48); LYMPHOCYTES # (AUTO) 0.7 K/uL (2.5-16.5); LYMPHOCYTES % (AUTO) 22.9 % (20.5-51.1); MEAN CORPUSCULAR HEMOGLOBIN 35 pg (27-31); MEAN CORPUSCULAR HGB CONC 35 g/dL (33-37); MEAN CORPUSCULAR VOLUME 98.4 fL (80-94); MONOCYTES # (AUTO) 0.3 K/uL (0.8-1.0); MONOCYTES % (AUTO) 8.9 % (1.7-9.3); NEUTROPHILS # (AUTO) 1.9 K/uL (1.8-7.7); NEUTROPHILS % (AUTO) 64.7 % (42.2-75.2); PLATELET COUNT (AUTO) 42 K/uL (140-450); RED BLOOD CELL COUNT(AUTO) 3.44 MIL/uL (4.20-5.40); RED CELL DISTRIBUTION WIDTH 15.1 % (11.6-13.7)
--- NOTE | 2021-03-09 07:28 | NUR ---
ENDORSED PATIENT TO AM SHIFT NURSE FOR CONTINUITY OF CARE.
[2021-03-09 08:00] VITALS: BP 117/54
[2021-03-09] MEDS ORDERED: LEVOTHYROXINE SODIUM 100 MCG VIAL IV SCH (08:00)
--- NOTE | 2021-03-09 08:08 | NUR ---
Pt informed RN that she does not eat any pork or chicken d/t personal preference. Notified FNS of pt request.
[2021-03-09] MEDS: BLOOD GLUCOSE MONITORING 1 DEV DEV FS SCH ×4 (08:30→21:00)
[2021-03-09] MEDS: CYCLOBENZAPRINE 10 MG TAB PO SCH ×3 (08:50→21:00)
[2021-03-09] MEDS: CHOLECALCIFEROL 1,000 IU TAB PO SCH (08:50)
[2021-03-09] MEDS: FERROUS SULFATE 325 MG TABEC PO SCH (08:50)
[2021-03-09] MEDS: LACTULOSE 20 GM/30 ML UDC PO SCH ×4 (08:50→21:00)
[2021-03-09] MEDS: SPIRONOLACTONE 25 MG TAB PO SCH ×2 (08:51→21:00)
[2021-03-09] MEDS: INSULIN LANTUS 100 UNITS/ML 10 ML VIAL SUBQ SCH (08:56)
[2021-03-09] MEDS ORDERED: NON-FORMULARY ITEM (Cholecalciferol (Vitamin D3) (Vitamin D3) 1 TAB) PO SCH (09:00)
--- NOTE | 2021-03-09 09:04 | NUR ---
PATIENT HAS BEEN SCREENED AND CATEGORIZED HIGH NUTRITION RISK. PATIENT WILL BE SEEN WITHIN 1-2 DAYS OF ADMISSION. 03/09/[address]
--- NOTE | 2021-03-09 09:30 | NUR ---
Standby supervision provided during toileting and hygiene care (toothbrushing, spongebath). Patient able to complete tasks with steady gait. Instructed patient to call for assistance as needed to ensure safety. Patient verbalized understanding and agree with care plan.
--- NOTE | 2021-03-09 11:00 | NUR ---
Patient resting in bed, 2 visitors at bedside. Patient is interacting appropriately, no signs of distress.
[2021-03-09] MEDS: INSULIN LISPRO SLIDING SCALE 100 UNITS/ML VIAL SUBQ PRN ×2 (11:54→17:58)
[2021-03-09 12:00] VITALS: BP 137/67
--- NOTE | 2021-03-09 14:47 | NUR ---
DR. ARRIAZA APPROVED RD RECOMMENDATIONS FOR NA2GM [facility] 60 GM DIET.
--- NOTE | 2021-03-09 15:09 | NUR ---
03/09/21 RD INITIAL ASSESSMENT COMPLETED PLEASE REFER TO NUTRITION ASSESSMENT UNDER CARE ACTIVITY FOR ESTIMATED NUTRITIONAL NEEDS. 1. RECOMMEND 2GM SALT & CCHO 60GM DIET TOLERATED. 2. RD TO FOLLOW-UP 3-5 DAYS, MODERATE RISK DAVID GREWAL RD
[2021-03-09 16:00] VITALS: BP 118/55
--- NOTE | 2021-03-09 16:22 | NUR ---
DC PLANNING: CM SPOKE WITH PATIENT AT BEDSIDE. PATIENT ADMITTED WITH ELEVATED AMMONIA AND CONFUSION, STATES SHE WASN'T TAKING ENOUGH LACTULOSE AT HOME. CONFIRMED DEMOGRAPHIC INFORMATION PER FACESHEET. LIVES IN A SINGLE STORY HOUSE WITH HER SON AND GRANDDAUGHTER, IS NORMALLY INDEPENDENT IN ALL ACTIVITIES OF DAILY LIVING. HAS DME OF A GLUCOMETER, STATES SHE IS COMPLIANT WITH INSULIN USE, NO H/O HOME HEALTH SERVICE. SEES HER PCP REGULARLY WELL A GI SPECIALIST FOR HER LIVER DISEASE, AND AN KENNEL HAND FOR HER DIABETES. PATIENT DRIVES HERSELF TO HER MD APPOINTMENTS, AND HAS INCOME FROM [employer] AND THE [employer]. PLAN IS FOR PATIENT TO RETURN HOME WHEN MEDICALLY STABLE, CM WILL CONTINUE TO FOLLOW FOR NEEDS.
--- NOTE | 2021-03-09 19:00 | NUR ---
office systems technology instructor at bedside. Report given to pm nurse Sri.
--- NOTE | 2021-03-09 19:00 | NUR ---
RECEIVED PATIENT FROM AM SHIFT NURSE FOR CONTINUITY OF CARE. ALERT AND ABLE TO MAKE NEEDS KNOWN. RESPIRATIONS EVEN, UNLABORED. NO S/S RESPIRATORY DISTRESS. S1/S2 AUSCULTATED. SKIN WARM, DRY. SALINE LOCK TO RIGHT FOREARM 20G PATENT/INTACT. NO C/O PAIN. ABDOMEN ROUNDED, NONTENDER. BOWEL SOUNDS ACTIVE x4 QUADRANTS. PATIENT IS CONTINENT OF B/B. FAMILY AT BEDSIDE. DIGITAL COMMUNITY MANAGER AT BEDSIDE. PLAN OF CARE DISCUSSED. CALL LIGHT IN REACH. SAFETY PRECAUTIONS IN PLACE.
[2021-03-09 20:00] VITALS: BP 124/67
[2021-03-09] MEDS: RIFAXIMIN 550 MG TAB PO SCH (21:00)
--- NOTE | 2021-03-09 21:45 | NUR ---
DUE MEDS GIVEN. PATIENT RESTING COMFORTABLY IN BED. FAMILY AT BEDSIDE. NO S/S RESPIRATORY DISTRESS. NO C/O PAIN. CALL LIGHT IN REACH AT ALL TIMES.
--- NOTE | 2021-03-09 23:35 | NUR ---
ALL NEEDS ANTICIPATED AND MET. PATIENT RESTING COMFORTABLY IN BED. NO S/S RESPIRATORY DISTRESS. NO C/O PAIN. PATIENT CLEAN/DRY. CALL LIGHT IN REACH.
--- NOTE | 2021-03-10 01:35 | NUR ---
MADE ROUNDS. PATIENT IS ASLEEP. NO S/S RESPIRATORY DISTRESS. CALL LIGHT IN REACH AT ALL TIMES.
--- NOTE | 2021-03-10 03:09 | NUR ---
PATIENT IS ASLEEP.
[2021-03-10 04:00] VITALS: BP 110/53
--- NOTE | 2021-03-10 05:46 | NUR ---
PATIENT RESTING COMFORTABLY IN BED. NO S/S RESPIRATORY DISTRESS. NO C/O PAIN. CALL LIGHT IN REACH.
[2021-03-10] MEDS ORDERED: LEVOTHYROXINE 0.075 MG TAB PO SCH (06:30)
[2021-03-10] MEDS: BLOOD GLUCOSE MONITORING 1 DEV DEV FS SCH ×2 (06:34→11:26)
[2021-03-10 06:47] LABS: EOSINOPHILS # (AUTO) 0.1 K/uL (0-0.4); EOSINOPHILS % (AUTO) 2.6 % (0.0-4.0); HEMATOCRIT 34.7 % (36-48); HEMOGLOBIN 12.1 g/dL (12.0-16.0); LYMPHOCYTES # (AUTO) 0.7 K/uL (2.5-16.5); LYMPHOCYTES % (AUTO) 21.7 % (20.5-51.1); MEAN CORPUSCULAR HEMOGLOBIN 35 pg (27-31); MEAN CORPUSCULAR HGB CONC 35 g/dL (33-37); MEAN CORPUSCULAR VOLUME 100.1 fL (80-94); MONOCYTES # (AUTO) 0.4 K/uL (0.8-1.0); MONOCYTES % (AUTO) 10.7 % (1.7-9.3); NEUTROPHILS # (AUTO) 2.1 K/uL (1.8-7.7); PLATELET COUNT (AUTO) 42 K/uL (140-450); RED BLOOD CELL COUNT(AUTO) 3.47 MIL/uL (4.20-5.40); WHITE BLOOD COUNT (AUTO) 3.4 K/uL (4.8-10.8)
[2021-03-10 06:53] LABS: ANION GAP 9.5 (8-16); CARBON DIOXIDE 23.2 mmol/L (21-32); CREATININE 0.7 mg/dL (0.6-1.3); POTASSIUM 3.7 mmol/L (3.5-5.1)
[2021-03-10 07:03] LABS: MAGNESIUM 1.8 mg/dL (1.8-2.4); PHOSPHORUS 3.4 mg/dL (2.5-4.9)
--- NOTE | 2021-03-10 07:15 | NUR ---
PATIENT RECEIVED FROM RESTAURANT HOURLY MANAGER RN. PATIENT RESTING IN BED NO S/SX OF DISTRESS AT THIS TIME. PATIENTS EYES ARE CLOSED BREATHING IS SYMMETRICAL. FLACC (0). ALL SAFETY MEASURES ARE IN PLACE. IV SITE IS DRY CLEAN AND INTACT.
--- NOTE | 2021-03-10 08:15 | NUR ---
MEDICATIONS GIVEN PER MD ORDER. PT EDUCATED VERBALIZED UNDERSTANDING . BG ASSESSED 72., LANTUS WILL BE GIVEN WHEN PT EATS. PT DOES NOT WANT FLEXERIL. PT EDUCATED AND REFUSED MED. MD STUDENT AWARE. ALL SAFETY MEASURES ARE IN PLACE
[2021-03-10] MEDS: FERROUS SULFATE 325 MG TABEC PO SCH (08:24)
[2021-03-10] MEDS: CHOLECALCIFEROL 1,000 IU TAB PO SCH (08:24)
[2021-03-10] MEDS: RIFAXIMIN 550 MG TAB PO SCH (08:24)
[2021-03-10] MEDS: LACTULOSE 20 GM/30 ML UDC PO SCH ×2 (08:24→12:29)
[2021-03-10] MEDS: SPIRONOLACTONE 25 MG TAB PO SCH (08:24)
--- NOTE | 2021-03-10 08:30 | NUR ---
MD STUDENT AT BEDSIDE. PT EDUCATED AND VERBALIZED UNDERSTANDING
[2021-03-10] MEDS: CYCLOBENZAPRINE 10 MG TAB PO SCH (09:00)
[2021-03-10] MEDS: INSULIN LANTUS 100 UNITS/ML 10 ML VIAL SUBQ SCH (09:20)
--- NOTE | 2021-03-10 09:23 | NUR ---
PT GIVEN INSULIN PER MD ORDER. PT EDUCATED ON SIDE EFFECTS AD ASKED TO CALL IF EXPERIENCES ANY SIDE EFFECTS. MEDICATION VERIFIED BY TWO RNS. BG 72. PT FINISHED FOOD BEFORE GIVEN MEDICATION.
[2021-03-10] MEDS ORDERED: SYN.1 PO (10:46)
[2021-03-10] MEDS ORDERED: LACT10SO11 PO (10:46)
[2021-03-10] MEDS ORDERED: RIFA550T PO (10:46)
--- NOTE | 2021-03-10 11:27 | NUR ---
BG ASSESSED. BG 185
[2021-03-10 12:00] VITALS: BP 101/59
[2021-03-10] MEDS: INSULIN LISPRO SLIDING SCALE 100 UNITS/ML VIAL SUBQ PRN (12:28)
--- NOTE | 2021-03-10 12:32 | NUR ---
PRN INSULIN GIVEN PER MD ORDERS. PATIENT EDUCATED VERBALIZED UNDERSTANDING.
--- NOTE | 2021-03-10 12:36 | NUR ---
MEDICATIONS GIVEN PER MD ORDERS. PATIENT EDUCATED. ALL SIDE EFFECTS EXPLAINED.
[2021-03-10 13:33] VITALS: BP 101/59
--- NOTE | 2021-03-10 14:10 | NUR ---
PT LEFT UNIT WALKING . PT REFUSED WHEEL CHAIR. PT IV REMOVED CANULA INTACT. PT EDUCATED AND VERBALIZED UNDERSTANDING OF CONTINUITY OF CARE
[2021-03-11] MEDS ORDERED: LEVOTHYROXINE 0.1 MG TAB PO SCH (06:30)
== END 2021-03-10 14:40 | disposition home or self-care (01) | DRG 442 ==
LOC: MED 09:27 → MMU 11:58 → MTU 11:58 → UNDOADMIN 11:58 → MTU 16:57
DX: K75.81 Nonalcoholic steatohepatitis (NASH) (principal); K76.6 Portal hypertension; K74.60 Unspecified cirrhosis of liver; K72.90 Hepatic failure, unspecified without coma; Z85.43 Personal history of malignant neoplasm of ovary; Z85.850 Personal history of malignant neoplasm of thyroid; M62.838 Other muscle spasm; Z90.710 Acquired absence of both cervix and uterus; D50.9 Iron deficiency anemia, unspecified; E11.9 Type 2 diabetes mellitus without complications; E03.9 Hypothyroidism, unspecified; I50.9 Heart failure, unspecified; M81.0 Age-related osteoporosis without current pathological fracture; D69.6 Thrombocytopenia, unspecified; E87.8 Other disorders of electrolyte and fluid balance, not elsewhere classified; R16.1 Splenomegaly, not elsewhere classified
CPT/HCPCS: 36415; 70450; 71045; 76700; 76770; 80048; 80053; 81001; 82140; 82948; 83036; 83735; 84100; 84443; 84484; 85025; 85610; 85730; 87081; 87086; 93005; 96374; 99285; J1815; J2405

== ENCOUNTER 2021-08-04 20:08 | Emergency (ER) | payer OTHER ==
[~2021-08-04] VITALS: Ht 167.6 cm; Wt 81.6 kg
[~2021-08-04 20:08] MED LIST changes: +CYCL-655 PO; -CYCL10TA13 PO; +LACT10SO11 PO; +RIFA550T PO; +SYN.1 PO
[2021-08-04 20:21] VITALS: BP 144/68
--- NOTE | 2021-08-04 20:21 | NUR ---
to bed ambulatory
--- NOTE | 2021-08-04 20:51 | NUR ---
ER AT BEDSIDE
--- NOTE | 2021-08-04 20:51 | NUR ---
Dr. Astudillo examining patient.
--- NOTE | 2021-08-04 21:13 | NUR ---
LAB AT BEDSIDE
--- NOTE | 2021-08-04 21:14 | NUR ---
LABS AT BEDSIDE
--- NOTE | 2021-08-04 21:28 | NUR ---
PT TAKEN TO RADIOLOGY
--- NOTE | 2021-08-04 21:35 | NUR ---
PT RETURN FROM RADIOLGY
[2021-08-04 21:40] LABS: BASOPHILS % (AUTO) 0.1 % (0.0-2.0); EOSINOPHILS # (AUTO) 0.2 K/uL (0-0.4); EOSINOPHILS % (AUTO) 3.7 % (0.0-4.0); HEMATOCRIT 31.8 % (36-48); HEMOGLOBIN 11.2 g/dL (12.0-16.0); LYMPHOCYTES # (AUTO) 0.8 K/uL (2.5-16.5); MEAN CORPUSCULAR HEMOGLOBIN 34 pg (27-31); MEAN CORPUSCULAR HGB CONC 35 g/dL (33-37); MEAN CORPUSCULAR VOLUME 96.5 fL (80-94); MONOCYTES # (AUTO) 0.4 K/uL (0.8-1.0); MONOCYTES % (AUTO) 8.7 % (1.7-9.3); NEUTROPHILS # (AUTO) 2.9 K/uL (1.8-7.7); NEUTROPHILS % (AUTO) 69.5 % (42.2-75.2); PLATELET COUNT (AUTO) 64 K/uL (140-450); RED CELL DISTRIBUTION WIDTH 14.9 % (11.6-13.7); WHITE BLOOD COUNT (AUTO) 4.2 K/uL (4.8-10.8)
--- NOTE | 2021-08-04 21:40 | NUR ---
71 Y/O F BIB SELF, C/O BLOATING AND SOB X1DAY. PATIENT PRESENTS TO ED WITH LARGE DISTENDED ABDOMEN, WEAKNESS, AND POLYURIA. PT STATES DUE TO THE DISTENTION IT IS HARDER TO BREATH, WHICH MAKES HER WEAK. DENIES N/V/D; SKIN IS PINK/WARM/DRY; AAOX4 WITH EVEN AND STEADY GAIT; LUNGS CLEAR BL; HR EVEN AND REGULAR; PT DENIES ANY FEVER, CP, CHRISTY, DIZZINESS, OR COUGH AT THIS TIME; PATIENT STATES NO PAIN AT THIS TIME; VSS; PATIENT POSITIONED FOR COMFORT; HOB ELEVATED; BEDRAILS UP X1; BED DOWN. ER MD MADE AWARE OF PT STATUS. HX: LIVER DISEASE, DM, THYROIDECTOMY NKDA MEDS:SYNTHROID, METHEMAMINE, SPIRONOLACTONE, RIFAXIMIN, FUROSEMIDE
[2021-08-04 22:05] LABS: ANION GAP 8.3 (8-16); CARBON DIOXIDE 25.3 mmol/L (21-32); CREATININE 0.7 mg/dL (0.6-1.3); POTASSIUM 3.6 mmol/L (3.5-5.1); TOTAL BILIRUBIN 2.1 mg/dL (0.0-1.0)
--- NOTE | 2021-08-04 22:20 | NUR ---
Bernardo sykes in [facility] - 08/04/21 at 2221 by [email or web address] ER MD AT BEDSIDE
--- NOTE | 2021-08-04 22:21 | NUR ---
PT RESTING COMFORTABLY IN BED; BED IN LOWEST SETTING; RAILS UP X1. PT HAS BEEN USING THE RESTROOM AND NOW DENIES SOB. PT STATES SHE BEELS MUCH BETTER.
[2021-08-04 22:29] LABS: BILIRUBIN,DIRECT 0.9 mg/dL (0.0-0.3); FREE T4 (FREE THYROXINE) 1.2 ng/dL (0.76-1.46); THYROID STIMULATING HORMONE 6.37 uIU/mL (0.34-3.74); TOTAL BILIRUBIN 2.1 mg/dL (0.0-1.0)
[2021-08-04 23:12] VITALS: BP 140/65
--- NOTE | 2021-08-04 23:40 | NUR ---
Patient discharged with v/s stable. Written and verbal after care instructions given and explained. Patient verbalized understanding. Ambulatory with steady gait. All questions addressed prior to discharge. Advised to follow up with PMD. VSS, UNLABORED BREATHING, STEADY GAIT, AND CALM DEMEANOR.
== END 2021-08-04 23:40 | disposition home or self-care (01) ==
LOC: MED 20:08
DX: R14.0 Abdominal distension (gaseous) (principal); R22.43 Localized swelling, mass and lump, lower limb, bilateral; R06.02 Shortness of breath; R35.0 Frequency of micturition; E11.9 Type 2 diabetes mellitus without complications; E03.9 Hypothyroidism, unspecified; Z85.43 Personal history of malignant neoplasm of ovary; Z85.850 Personal history of malignant neoplasm of thyroid; Z90.710 Acquired absence of both cervix and uterus; Z98.890 Other specified postprocedural states; Z79.899 Other long term (current) drug therapy; Z79.4 Long term (current) use of insulin
CPT/HCPCS: 36415; 71046; 80053; 81002; 82247; 82248; 83690; 83880; 84439; 84443; 84484; 85025; 93005; 99285

== ENCOUNTER 2022-03-01 20:02 | Emergency (ER) | payer OTHER ==
[~2022-03-01] VITALS: Ht 167.6 cm; Wt 81.6 kg
[2022-03-01 20:02] VITALS: BP 133/67
--- NOTE | 2022-03-01 20:02 | NUR ---
BIBA WITH C/O GEN WEAKNESS, COUGH, FATIQUE FROM HOME
--- NOTE | 2022-03-01 21:15 | NUR ---
PT WENT TO REGISTRATION AND SAID SHE WAS LEAVING , LWBS
== END 2022-03-01 21:15 | disposition left against medical advice (07) ==
LOC: MED 20:02
DX: R53.1 Weakness (principal); R05.9 Cough, unspecified; R53.83 Other fatigue; Z53.21 Procedure and treatment not carried out due to patient leaving prior to being seen by health care provider

== ENCOUNTER 2022-03-17 17:05 | Inpatient (IN) | payer OTHER ==
[~2022-03-17] VITALS: Ht 167.6 cm; Wt 77.1 kg
[2022-03-17 17:10] VITALS: BP 137/60
[2022-03-17 17:58] LABS: BASOPHILS % (AUTO) 0.3 % (0.0-2.0); EOSINOPHILS # (AUTO) 0.1 K/uL (0-0.4); EOSINOPHILS % (AUTO) 1.9 % (0.0-4.0); HEMATOCRIT 39.2 % (36-48); HEMOGLOBIN 13.3 g/dL (12.0-16.0); LYMPHOCYTES # (AUTO) 0.6 K/uL (2.5-16.5); LYMPHOCYTES % (AUTO) 15.7 % (20.5-51.1); MEAN CORPUSCULAR HEMOGLOBIN 33 pg (27-31); MEAN CORPUSCULAR HGB CONC 34 g/dL (33-37); MEAN CORPUSCULAR VOLUME 98.1 fL (80-94); MONOCYTES # (AUTO) 0.4 K/uL (0.8-1.0); MONOCYTES % (AUTO) 9.8 % (1.7-9.3); NEUTROPHILS # (AUTO) 2.6 K/uL (1.8-7.7); NEUTROPHILS % (AUTO) 72.3 % (42.2-75.2); PLATELET COUNT (AUTO) 49 K/uL (140-450); RED BLOOD CELL COUNT(AUTO) 3.99 MIL/uL (4.20-5.40); RED CELL DISTRIBUTION WIDTH 16.5 % (11.6-13.7); WHITE BLOOD COUNT (AUTO) 3.6 K/uL (4.8-10.8)
[2022-03-17 18:11] LABS: ANION GAP 10.9 (8-16); CARBON DIOXIDE 24.2 mmol/L (21-32); CREATININE 0.8 mg/dL (0.6-1.3); POTASSIUM 4.1 mmol/L (3.5-5.1)
--- NOTE | 2022-03-17 18:11 | NUR ---
Urine sample obtained, handed urine to Sindhu MILLER at bedside.
--- NOTE | 2022-03-17 18:12 | NUR ---
Obtained SANJAY specimen handed to ANGELA Manley at bedside.
[2022-03-17 18:16] LABS: APPEARANCE,URINE CLEAR (CLEAR); BILIRUBIN,URINE NEGATIVE (NEGATIVE); BLOOD, URINE NEGATIVE (NEGATIVE); COLOR,URINE YELLOW (YELLOW); LEUKOCYTE ESTERASE ,URINE NEGATIVE (NEGATIVE); NITRITE, URINE NEGATIVE (NEGATIVE); UGLUCOSE 3+ (NEGATIVE)
[2022-03-17 18:17] LABS: ALBUMIN 2.7 g/dL (3.4-5.0); TOTAL BILIRUBIN 2.5 mg/dL (0.0-1.0)
[2022-03-17] MEDS ORDERED: LACTULOSE 20 GM/30 ML UDC PO ONE (18:45)
--- NOTE | 2022-03-17 18:48 | NUR ---
71/F BIB FAMILY. STATES PATIENT HAS HX OF ELEVATED AMMONIA LEVELS D/T HX OF FATTY LIVER. STATES PATIENT HAS APPEARED CONFUSED TODAY AND THEY BELIEVE HER LEVELS MAY BE ELEVATED. UPON ARRIVAL PATIENT ABLE TO ANSWER QUESTIONS APPROPRIATELY, PATIENT SLOW TO RESPOND. PATIENT OTHERWISE DENIES ANY OTHER MEDICAL COMPLAINTS AT THIS TIME.
--- NOTE | 2022-03-17 19:15 | NUR ---
Patient report given to MORGAN Rizvi. Transfer of care at this time.
--- NOTE | 2022-03-17 19:24 | NUR ---
pt is awake and alert. all needs met at this time. pt denies pain and discomfort. she is sitting up using phone.
--- NOTE | 2022-03-17 20:21 | NUR ---
report given to kyleigh david. [id number]. going to rm [id number]
--- NOTE | 2022-03-17 20:27 | NUR ---
Patient will be admitted to care of . Admited to tele. Will go to [id number]. Belongings list completed. Report to kyleigh david.
[2022-03-17 20:30] VITALS: BP 141/65
--- NOTE | 2022-03-17 20:30 | NUR ---
ADMITTED THE PATIENT FROM ER VIA GURNEY. PATIENT AMBULATED FROM THE GURNEY TO THE BED AND TOLERATED IT WELL NO S/SX OF DISTRESS NOTED AND NO COMPLAIN FROM THE PATIENT. VSS, AFEBRILE, SATING 98% ON RA. SR ON TELE MONITOR, HR- 79. NO COMPLAIN OF PAIN AT THIS TIME. ORIENTED TO THE ROOM SETTING AND CALL LIGHT SYSTEM. PT VERBALIZED UNDERSTANDING. WILL CONTINUE POC AND MONITORING.
--- NOTE | 2022-03-17 20:39 | NUR ---
PATIENT AWARE OF SEVERITY OF INJURY AND USED [employer] TRANSLATE TO CONFIRM MEDICAL SITUATION.
--- NOTE | 2022-03-17 20:39 | NUR ---
PATIENT ASSESSED AND WILL CONNECT WITH ORTHOPEDIC MD FOR REFERRAL ONCE PATIENT IS BACK FROM CT AND SPLIT HAS BEEN APPLIED.
--- NOTE | 2022-03-17 20:48 | NUR ---
med recon verified with son tialo.
--- NOTE | 2022-03-17 21:00 | NUR ---
PAGED DR BORJA EARLIER FOR ADMISSION ORDER AND MD AWARE AND STATED HE WILL PLACE THE ORDERS.
[2022-03-17] MEDS ORDERED: MAGNESIUM OXIDE 400 MG TAB PO PRN (23:40)
[2022-03-17] MEDS ORDERED: HYDROcodone/APAP 5/325 MG 1 TAB TAB PO PRN (23:40)
[2022-03-17] MEDS ORDERED: POTASSIUM CHLORIDE 10 MEQ TABER PO PRN (23:40)
[2022-03-17] MEDS ORDERED: DOCUSATE SODIUM 100 MG GELCAP PO PRN (23:40)
[2022-03-17] MEDS ORDERED: MORPHINE SULFATE 2 MG/ML SYR IVP PRN (23:40)
[2022-03-17] MEDS ORDERED: ONDANSETRON 4 MG/2 ML VIAL IM/IVP PRN (23:40)
[2022-03-17] MEDS ORDERED: ACETAMINOPHEN 325 MG TAB PO PRN (23:40)
[2022-03-17] MEDS ORDERED: SODIUM PHOS / POTASSIUM PHOS 1 PKT PDR PO PRN (23:40)
[2022-03-18] VITALS: BP 116/51
--- NOTE | 2022-03-18 | NUR ---
VITAL SIGNS STABLE, AFEBRILE, SATING 97% ON RA. NO COMPLAIN OF PAIN. SR ON TELE, HR-71. WILL CONTINUE MONITORING.
[2022-03-18] MEDS ORDERED: cefTRIAXone 1,000 MG VIAL ONE (00:31)
--- NOTE | 2022-03-18 01:49 | NUR ---
PATIENT CALLED AN STATED THAT SHE FEELS LIKE HER BLOOD SUGAR IS LOW. CHECKED THE PATIENT BLOOD SUGAR 78. GAVE PATIENT 1 ORANGE JUICE. WILL CONTINUE TO OBSERVE.
[2022-03-18 03:10] LABS: MAGNESIUM 2.3 mg/dL (1.8-2.4); PHOSPHORUS 3.7 mg/dL (2.5-4.9)
[2022-03-18 04:00] VITALS: BP 115/57
--- NOTE | 2022-03-18 04:00 | NUR ---
VITAL SIGNS STABLE, AFEBRILE SATING 97% ON RA. SR ON MINING CAPTAIN, HR-[id number]. NO COMPLIN OF PAIN AT THIS TIME. CALL LIGHT WITHIN REACH.
[2022-03-18] MEDS: metroNIDAZOLE 500 MG/NS PREMIX 100 ML IV SCH ×3 (06:00→20:30)
[2022-03-18] MEDS: LEVOTHYROXINE 0.1 MG TAB PO SCH (06:00)
--- NOTE | 2022-03-18 06:00 | NUR ---
NO ACUTE EVENT THROUGHOUT THE NIGHT. PATIENT STABLE. NO SIGN AND SYMPTOMS OF DISTRESS NOTED AND NO COMPLAIN FROM THE PATIENT. ALL NEEDS ATTENDED. CALL LIGHT WITHIN REACH. WILL ENDORSE THE PATIENT TO THE ONCOMING RN FOR CONTINUITY OF CARE.
[2022-03-18 06:03] LABS: BASOPHILS % (AUTO) 0.8 % (0.0-2.0); EOSINOPHILS # (AUTO) 0.1 K/uL (0-0.4); EOSINOPHILS % (AUTO) 2.8 % (0.0-4.0); HEMATOCRIT 36.1 % (36-48); HEMOGLOBIN 12.4 g/dL (12.0-16.0); LYMPHOCYTES # (AUTO) 0.6 K/uL (2.5-16.5); LYMPHOCYTES % (AUTO) 23.5 % (20.5-51.1); MEAN CORPUSCULAR HEMOGLOBIN 33 pg (27-31); MEAN CORPUSCULAR HGB CONC 34 g/dL (33-37); MEAN CORPUSCULAR VOLUME 97.3 fL (80-94); MONOCYTES # (AUTO) 0.2 K/uL (0.8-1.0); MONOCYTES % (AUTO) 9.3 % (1.7-9.3); NEUTROPHILS # (AUTO) 1.6 K/uL (1.8-7.7); NEUTROPHILS % (AUTO) 63.6 % (42.2-75.2); PLATELET COUNT (AUTO) 38 K/uL (140-450); RED BLOOD CELL COUNT(AUTO) 3.71 MIL/uL (4.20-5.40); RED CELL DISTRIBUTION WIDTH 16.8 % (11.6-13.7); WHITE BLOOD COUNT (AUTO) 2.6 K/uL (4.8-10.8)
[2022-03-18 06:09] LABS: ANION GAP 12.4 (8-16); CARBON DIOXIDE 22.3 mmol/L (21-32); CREATININE 0.6 mg/dL (0.6-1.3); POTASSIUM 3.7 mmol/L (3.5-5.1)
--- NOTE | 2022-03-18 06:10 | NUR ---
CHECKED THE PATIENT BLOOD SUGAR, 72. PT A/A/OX3, ASYMPTOMATIC. GAVE 1 ORANGE JUICE AND WILL RE CHECK IT AGAIN.
[2022-03-18] MEDS: BLOOD GLUCOSE MONITORING 1 DEV DEV FS SCH ×4 (06:39→20:30)
--- NOTE | 2022-03-18 06:40 | NUR ---
RE CHECKED PT BLOOD SUGAR AND ITS NOW 111. NO COVERAGE NEEDED AND GIVEN.
--- NOTE | 2022-03-18 07:44 | NUR ---
ENDORSED PT TO THE ONCOMING RN FOR CONTINUITY OF CARE. PT STABLE. SIGNING OFF.
[2022-03-18] MEDS: PANTOPRAZOLE 40 MG INJ VIAL IVP SCH (08:48)
[2022-03-18] MEDS: LACTULOSE 20 GM/30 ML UDC PO SCH ×3 (08:48→21:40)
[2022-03-18] MEDS: RIFAXIMIN 550 MG TAB PO SCH ×2 (08:49→20:31)
[2022-03-18] MEDS: SPIRONOLACTONE 50 MG TAB PO SCH ×2 (08:49→20:31)
--- NOTE | 2022-03-18 09:02 | NUR ---
PATIENT HAS BEEN SCREENED AND CATEGORIZED MODERATE NUTRITION RISK. PATIENT WILL BE SEEN WITHIN 3-5 DAYS OF ADMISSION. [address]
[2022-03-18 10:21] VITALS: BP 115/59
[2022-03-18] MEDS: INSULIN LISPRO SLIDING SCALE 100 UNITS/ML VIAL SUBQ PRN ×3 (11:50→20:30)
[2022-03-18 17:27] VITALS: BP 105/58
--- NOTE | 2022-03-18 18:05 | NUR ---
0730 Pt. sleeping, call light in reach no distress 1200 pt. having nurtritional consult due to her vegetarian diet, no distress, call light in reach 1600 Pt. aaox4, visiting with her family, no n/v or pain noted 1800 Pt. needs met this shift, vss, aaox4, independent in bathroom, call light in reach.
[2022-03-18 20:00] VITALS: BP 111/56
--- NOTE | 2022-03-18 20:00 | NUR ---
RECEIVED BEDSIDE REPORT FROM DAY RN FOR CONTINUITY OF CARE. RECEIVED PT A/A/OX4, SITTING IN BED WATCHING TV. PT NOT IN ANY DISTRESS AND NO COMPLAIN AT THIS TIME. DENIES CHEST PAIN, SOB AND DIZZINESS. FALL PRECAUTION IMPLEMENTED. INSTRUCTED PT TO CALL FOR ASSISTANCE AT ALL TIMES. PATIENT VERBALIZED UNDERSTANDING. BED IN LOW AND LOCKED POSITION. CALL LIGHT WITHIN REACH. WILL CONTINUE POC AND MONITORING.
--- NOTE | 2022-03-18 22:00 | NUR ---
ADMINISTERED ALL THE SCHEDULED MEDS ORDERED. NO ADVERSE DRUG REACTION NOTED. AND NO COMPLAIN FROM THE PATIENT. WILL CONTINUE TO OBSERVE THE PT.
[2022-03-19] VITALS: BP 96/46
--- NOTE | 2022-03-19 | NUR ---
VITAL SIGNS STABLE, AFEBRILE, SATING 95% ON RA. NO COMPLAIN OF PAIN AND NOT IN ANY DISTRESS. SR ON TELE, HR-65. WILL CONTINUE MONITORING.
--- NOTE | 2022-03-19 02:00 | NUR ---
PATIENT ASLEEP AT THIS TIME. VISIBLE CHEST RISE AND FALL NOTED. NOT I N ANY DISTRESS. WILL CONTINUE OBSERVATION.
[2022-03-19 04:00] VITALS: BP 113/55
--- NOTE | 2022-03-19 04:15 | NUR ---
AM CARE PROVIDED. PT HAS NO COMPLAIN AT THIS TIME. CALL LIGHT WITHIN REACH.
[2022-03-19] MEDS: metroNIDAZOLE 500 MG/NS PREMIX 100 ML IV SCH ×3 (05:01→20:47)
[2022-03-19] MEDS: LEVOTHYROXINE 0.1 MG TAB PO SCH (06:08)
[2022-03-19 06:30] LABS: HEMATOCRIT 35.1 % (36-48); MEAN CORPUSCULAR HEMOGLOBIN 34 pg (27-31); MEAN CORPUSCULAR HGB CONC 34 g/dL (33-37); MEAN CORPUSCULAR VOLUME 98.3 fL (80-94); PLATELET COUNT (AUTO) 36 K/uL (140-450); RED BLOOD CELL COUNT(AUTO) 3.57 MIL/uL (4.20-5.40); RED CELL DISTRIBUTION WIDTH 16.5 % (11.6-13.7)
[2022-03-19 07:02] LABS: ANION GAP 12.1 (8-16); CREATININE 0.8 mg/dL (0.6-1.3); POTASSIUM 4.1 mmol/L (3.5-5.1)
[2022-03-19 07:15] LABS: WHITE BLOOD COUNT (AUTO) 2.3 K/uL (4.8-10.8)
[2022-03-19] MEDS: BLOOD GLUCOSE MONITORING 1 DEV DEV FS SCH ×6 (07:25→20:46)
--- NOTE | 2022-03-19 07:31 | NUR ---
ENDORSED PT TO THE ONCOMING SALES PLANNING MANAGER [facility] FOR CONTINUITY OF CARE. PT STABLE. SIGNING OFF.
--- NOTE | 2022-03-19 07:32 | NUR ---
RECEIVED REPORT FROM RECOVERY OPERATOR NURSE FOR CONTINUITY OF CARE. PT IS AWAKE. A&O4, ABLE TO COMMUNICATE NEEDS. RESPIRATIONS EVEN AND UNLABORED ON RA. SKIN IS INTACT, WARM AND DRY TO TOUCH. IV SITE AT LFA 22G, SL. CALL LIGHT WITHIN REACH. SAFETY PRECAUTIONS IN PLACE. WILL CONTINUE TO MONITOR.
[2022-03-19 08:00] VITALS: BP 129/67
--- NOTE | 2022-03-19 08:00 | NUR ---
Patient's Plan of Care was discussed and reviewed with AIRPLANE INSPECTOR: FANNY. WILL CONTINUE WITH CURRENT POC.
[2022-03-19] MEDS: RIFAXIMIN 550 MG TAB PO SCH ×2 (09:19→20:47)
[2022-03-19] MEDS: SPIRONOLACTONE 50 MG TAB PO SCH ×2 (09:19→20:48)
[2022-03-19] MEDS: LACTULOSE 20 GM/30 ML UDC PO SCH ×3 (09:20→16:21)
--- NOTE | 2022-03-19 09:24 | NUR ---
ADMINISTERED SCHEDULED MORNING MEDS. PT TEACHING ABOUT MEDS GIVEN. PT VERBALIZED UNDERSTANDING. IVP PROTONIX GIVEN BY MORGAN SERRA.
[2022-03-19] MEDS: PANTOPRAZOLE 40 MG INJ VIAL IVP SCH (09:37)
[2022-03-19 10:45] LABS: EOSINOPHILS % (MANUAL) 3 % (0-4); LYMPHOCYTES % (MANUAL) 25 % (20-46); MONOCYTES % (MANUAL) 11 % (5-12)
[2022-03-19 12:00] VITALS: BP 120/63
--- NOTE | 2022-03-19 12:13 | NUR ---
BLOOD GLUCOSE CHECK DONE. BS 110. NO INSULIN GIVEN. Addendum: 03/19/22 at 1424 by Jennifer Joshi LVN ERROR
--- NOTE | 2022-03-19 12:46 | NUR ---
FLAGYL ADMINISTERED BY RN. PT TOLERATED WELL. NO ADVERSE REACTION NOTED. WILL CONTINUE TO MONITOR.
--- NOTE | 2022-03-19 12:58 | NUR ---
Patient's Plan of Care was discussed and reviewed with INFORMATION RESOURCES MANAGER: FANNY. WILL CONTINUE WITH CURRENT POC. Addendum: 03/19/22 at 1259 by Rosa Davis RN WRONG TIME
--- NOTE | 2022-03-19 14:00 | NUR ---
BLOOD GLUCOSE CK DONE. BS 265. SLIDING SCALE INSULIN ADMINISTERED. DEPUTY DIRECTOR AT BEDSIDE. WHEELED PT TO RADIOLOGY FOR X-RAY. PT IS STABLE.
[2022-03-19] MEDS: INSULIN LISPRO SLIDING SCALE 100 UNITS/ML VIAL SUBQ PRN ×3 (14:03→20:46)
[2022-03-19 16:00] VITALS: BP 114/63
--- NOTE | 2022-03-19 16:23 | NUR ---
BLOOD GLUCOSE CHECK DONE. BS 256. SLIDING SCALE INSULIN GIVEN. ADMINISTERED SCHED LACTULOSE. PT TOLERATED WELL. DISCUSSED ABOUT THE MEDS. PT VERBALIZED UNDERSTANDING. SAFETY PRECAUTIONS IN PLACE. WILL CONTINUE TO MONITOR.
--- NOTE | 2022-03-19 19:18 | NUR ---
ENDORSED PT TO STEEL WELDER NURSE FOR CONTINUITY OF CARE. ALL NEEDS MET THROUGHOUT SHIFT. PT IS STABLE.
--- NOTE | 2022-03-19 19:30 | NUR ---
RECEIVED BEDSIDE REPORT FROM DAY SHIFT RN FOR CONTINUITY OF CARE. PT IS AWAKE AMBULATING. PT IS AAOX4 ON RA. PT HAS BEDSIDE COMMODE. PT HAS LEFT FOREARM 22 GAUGE SALINE LOCK. PT DENIES ANY PAIN AND HAS NO COMPLAIN. PLAN OF CARE DISCUSSED. WILL CONTINUE TO MONITOR THE PT.
[2022-03-19 20:00] VITALS: BP 119/57
--- NOTE | 2022-03-19 21:00 | NUR ---
SCHEDULE MEDS GIVEN. NO ADVERSE REACTION NOTED. WILL CONTINUE TO MONITOR THE PT.
--- NOTE | 2022-03-19 23:50 | NUR ---
SCHEDULE MEDS GIVEN. NO ADVERSE REACTION NOTED. PT IS DOING WELL AND HAS NO COMPLAINS AT THIS TIME. WILL CONTINUE TO MONITOR THE PT.
[2022-03-20] VITALS: BP 111/52
--- NOTE | 2022-03-20 02:06 | NUR ---
PT OBSERVED. PT IS SLEEPING IN BED. VISIBLE RISE AND CHEST FALL. NOT IN ANY DISTRESS. CALL LIGHT WITHIN REACH. WILL CONTINUE TO MONITOR THE PT.
[2022-03-20 04:00] VITALS: BP 114/59
--- NOTE | 2022-03-20 04:00 | NUR ---
PT VITAL SIGNS STABLE. PT HAS NO ISSUE OR COMPLAINS. CALL LIGHT WITHIN REACH. ALL SAFETY MEASURES TAKEN. WILL CONTINUE TO MONITOR THE PT.
[2022-03-20] MEDS: metroNIDAZOLE 500 MG/NS PREMIX 100 ML IV SCH ×2 (04:39→12:15)
[2022-03-20 05:48] LABS: BASOPHILS % (AUTO) 0.9 % (0.0-2.0); EOSINOPHILS # (AUTO) 0.1 K/uL (0-0.4); EOSINOPHILS % (AUTO) 3.6 % (0.0-4.0); HEMOGLOBIN 12.4 g/dL (12.0-16.0); LYMPHOCYTES # (AUTO) 0.6 K/uL (2.5-16.5); LYMPHOCYTES % (AUTO) 24.6 % (20.5-51.1); MEAN CORPUSCULAR HEMOGLOBIN 34 pg (27-31); MEAN CORPUSCULAR HGB CONC 34 g/dL (33-37); MONOCYTES # (AUTO) 0.2 K/uL (0.8-1.0); NEUTROPHILS # (AUTO) 1.4 K/uL (1.8-7.7); NEUTROPHILS % (AUTO) 60.5 % (42.2-75.2); PLATELET COUNT (AUTO) 37 K/uL (140-450); RED BLOOD CELL COUNT(AUTO) 3.64 MIL/uL (4.20-5.40); RED CELL DISTRIBUTION WIDTH 16.4 % (11.6-13.7); WHITE BLOOD COUNT (AUTO) 2.3 K/uL (4.8-10.8)
[2022-03-20] MEDS: LEVOTHYROXINE 0.1 MG TAB PO SCH (06:01)
--- NOTE | 2022-03-20 06:03 | NUR ---
SCHEDULE MEDS GIVEN. NO ADVERSE REACTION NOTED. WILL CONTINUE TO MONITOR THE PT.
[2022-03-20] MEDS: BLOOD GLUCOSE MONITORING 1 DEV DEV FS SCH ×2 (06:32→11:08)
--- NOTE | 2022-03-20 07:22 | NUR ---
ENDORSED PT TO DAY SHIFT RN FOR CONTINUITY OF CARE. PT IS STABLE.
[2022-03-20 07:29] LABS: ANION GAP 9.3 (8-16); CARBON DIOXIDE 23.9 mmol/L (21-32); CREATININE 0.7 mg/dL (0.6-1.3); POTASSIUM 4.2 mmol/L (3.5-5.1)
--- NOTE | 2022-03-20 07:30 | NUR ---
RECEIVED REPORT FROM COMMERCIAL ROOFING ESTIMATOR NURSE. NO S/S OF DISTRESS. CALL LIGHT IN REACH ALL SAFETY MEASURES IN PLACE.
[2022-03-20 08:00] VITALS: BP 111/58
[2022-03-20] MEDS: LACTULOSE 20 GM/30 ML UDC PO SCH ×2 (08:47→12:15)
[2022-03-20] MEDS: SPIRONOLACTONE 50 MG TAB PO SCH (08:47)
[2022-03-20] MEDS: RIFAXIMIN 550 MG TAB PO SCH (08:47)
[2022-03-20 08:59] LABS: MONOCYTES % (AUTO) 10.4 % (1.7-9.3)
[2022-03-20] MEDS ORDERED: LANTUS SUBQ (10:42)
[2022-03-20] MEDS ORDERED: RIFA550T PO (10:43)
[2022-03-20] MEDS ORDERED: LACT10SO11 PO (10:43)
[2022-03-20] MEDS: INSULIN LISPRO SLIDING SCALE 100 UNITS/ML VIAL SUBQ PRN (11:08)
--- NOTE | 2022-03-20 11:15 | NUR ---
DC ORDER RECEIVED. DISCUSSED DC WITH PT, PT WILL BE PICKED UP BY FAMILY AFTER NEXT DOSE OF ANTIBIOTIC. NO S/S OF DISTRESS. CALL LIGHT WITHIN REACH. ALL SAFETY MEASURES IN PLACE
[2022-03-20 12:00] VITALS: BP 102/60
[2022-03-20] MEDS ORDERED: LACTULOSE 20 GM/30 ML UDC PO SCH (12:25)
--- NOTE | 2022-03-20 14:43 | NUR ---
PT DISCHARGED HOME WITH FAMILY IN PERSONAL VEHICLE. ALL PERSONAL BELONGINGS IN POSSESSION. IV REMOVED, CANULA INTACT. NO S/S OF DISTRESS. ALL SAFETY MEASURES IN PLACE. TELE BOX RETURNED
== END 2022-03-20 14:55 | disposition home or self-care (01) | DRG 441 ==
LOC: MED 17:05 → MTU 18:49
PROVIDERS: ADMIT Hospitalist; ATTEND Hospitalist
DX: K72.90 Hepatic failure, unspecified without coma (principal); E43 Unspecified severe protein-calorie malnutrition; J69.0 Pneumonitis due to inhalation of food and vomit; E72.20 Disorder of urea cycle metabolism, unspecified; K74.60 Unspecified cirrhosis of liver; E11.9 Type 2 diabetes mellitus without complications; K76.0 Fatty (change of) liver, not elsewhere classified; E03.9 Hypothyroidism, unspecified; D72.819 Decreased white blood cell count, unspecified; E80.6 Other disorders of bilirubin metabolism; Z20.822 Contact with and (suspected) exposure to COVID-19; Z79.899 Other long term (current) drug therapy; Z85.43 Personal history of malignant neoplasm of ovary; Z85.850 Personal history of malignant neoplasm of thyroid; Z83.3 Family history of diabetes mellitus; Z82.3 Family history of stroke; Z82.49 Family history of ischemic heart disease and other diseases of the circulatory system; Z68.27 Body mass index [BMI] 27.0-27.9, adult
CPT/HCPCS: 36415; 71045; 71046; 80048; 80053; 81003; 82140; 82948; 83735; 83880; 84100; 84484; 85025; 87081; 93005; 99285; C9113; J0696; J3490; J7060; Q0092

== ENCOUNTER 2022-06-05 17:31 | Emergency (ER) | payer OTHER ==
[~2022-06-05] VITALS: Ht 167.6 cm; Wt 77.6 kg
[~2022-06-05 17:31] MED LIST changes: -LEVO100P IV
[2022-06-05 17:42] VITALS: BP 162/70
--- NOTE | 2022-06-05 18:00 | NUR ---
BIB SELF C/O HEMOPTYSIS X 1 WEEK. DENIES N/V/D; SKIN IS PINK/WARM/DRY; AAOX4 WITH EVEN AND STEADY GAIT; LUNGS CLEAR BL; HR EVEN AND REGULAR; PT DENIES ANY FEVER, CP, SOB AT THIS TIME; PATIENT STATES PAIN OF 0/10 AT THIS TIME
[2022-06-05 18:12] LABS: BASOPHILS % (AUTO) 0.5 % (0.0-2.0); EOSINOPHILS # (AUTO) 0.1 K/uL (0-0.4); EOSINOPHILS % (AUTO) 2.5 % (0.0-4.0); HEMATOCRIT 38.6 % (36-48); HEMOGLOBIN 13.6 g/dL (12.0-16.0); LYMPHOCYTES % (AUTO) 18.6 % (20.5-51.1); MEAN CORPUSCULAR HEMOGLOBIN 35 pg (27-31); MEAN CORPUSCULAR HGB CONC 35 g/dL (33-37); MEAN CORPUSCULAR VOLUME 99.5 fL (80-94); MONOCYTES # (AUTO) 0.4 K/uL (0.8-1.0); MONOCYTES % (AUTO) 8.3 % (1.7-9.3); NEUTROPHILS # (AUTO) 3.7 K/uL (1.8-7.7); NEUTROPHILS % (AUTO) 70.1 % (42.2-75.2); PLATELET COUNT (AUTO) 55 K/uL (140-450); RED BLOOD CELL COUNT(AUTO) 3.88 MIL/uL (4.20-5.40); RED CELL DISTRIBUTION WIDTH 14.6 % (11.6-13.7); WHITE BLOOD COUNT (AUTO) 5.3 K/uL (4.8-10.8)
[2022-06-05 18:31] LABS: ALBUMIN 2.9 g/dL (3.4-5.0); ANION GAP 12.3 (8-16); ASPARTATE AMINOTRANSFERASE 25 U/L (15-37); CARBON DIOXIDE 26.2 mmol/L (21-32); CHLORIDE 105 mmol/L (98-107); GLUCOSE 231 mg/dL (74-106); POTASSIUM 4.5 mmol/L (3.5-5.1); SODIUM SERUM 139 mmol/L (136-145); TOTAL BILIRUBIN 4.2 mg/dL (0.0-1.0); UREA NITROGEN, BLOOD 11 mg/dL (7-18)
[2022-06-05 19:40] VITALS: BP 162/70
== END 2022-06-05 19:39 | disposition home or self-care (01) ==
LOC: MED 17:31
DX: R04.2 Hemoptysis (principal); E11.9 Type 2 diabetes mellitus without complications; E03.9 Hypothyroidism, unspecified; Z79.4 Long term (current) use of insulin; Z79.899 Other long term (current) drug therapy; Z85.43 Personal history of malignant neoplasm of ovary; Z85.850 Personal history of malignant neoplasm of thyroid
CPT/HCPCS: 36415; 71045; 80053; 85025; 99284

== ENCOUNTER 2023-01-01 20:09 | Emergency (ER) | payer OTHER ==
[~2023-01-01] VITALS: Ht 167.6 cm; Wt 79.4 kg
[2023-01-01 20:28] VITALS: BP 135/60
--- NOTE | 2023-01-01 20:31 | NUR ---
TO LOBBY A/W BED AMBULATORY
--- NOTE | 2023-01-01 21:33 | NUR ---
PT WENT UP TO ER ADMITTING AND SAID SHE WAS LEAVING
--- NOTE | 2023-01-01 22:00 | NUR ---
PT IS BACK
--- NOTE | 2023-01-01 22:09 | NUR ---
UA collected and sent to lab
[2023-01-01] MEDS ORDERED: PHENAZOPYRIDINE 100 MG TAB PO ONE (22:10)
[2023-01-01] MEDS ORDERED: NITROFURANTOIN 100 MG CAP PO ONE (22:10)
[2023-01-01 22:21] LABS: APPEARANCE,URINE CLEAR (CLEAR); BILIRUBIN,URINE NEGATIVE (NEGATIVE); BLOOD, URINE TRACE-I (NEGATIVE); COLOR,URINE YELLOW (YELLOW); LEUKOCYTE ESTERASE ,URINE NEGATIVE (NEGATIVE); NITRITE, URINE NEGATIVE (NEGATIVE); PH,URINE 6.5 (5.0-9.0); UGLUCOSE 3+ (NEGATIVE)
[2023-01-01] MEDS ORDERED: NITR100C7 PO (22:22)
[2023-01-01] MEDS ORDERED: PHEN-1877 PO (22:22)
[2023-01-01 22:30] VITALS: BP 135/60
--- NOTE | 2023-01-01 22:30 | NUR ---
D/C BY PRESCRIBED PYRIDIUM AND MACROBID
[2023-01-01 22:46] LABS: RBC,URINE 0-5 /HPF (0-5); YEAST,URINE Few /HPF (None Seen)
== END 2023-01-01 22:30 | disposition home or self-care (01) ==
LOC: MED 20:09
DX: N39.0 Urinary tract infection, site not specified (principal); R81 Glycosuria; R10.30 Lower abdominal pain, unspecified; E11.9 Type 2 diabetes mellitus without complications; E03.9 Hypothyroidism, unspecified; N18.9 Chronic kidney disease, unspecified; Z79.4 Long term (current) use of insulin; Z79.899 Other long term (current) drug therapy; Z98.890 Other specified postprocedural states
CPT/HCPCS: 81001; 87086; 99283

== ENCOUNTER 2023-02-08 18:55 | Inpatient (IN) | payer OTHER ==
[~2023-02-08] VITALS: Ht 167.6 cm; Wt 79.4 kg
[~2023-02-08 18:55] MED LIST changes: +NITR100C7 PO; +PHEN-1877 PO
[2023-02-08 19:22] VITALS: BP 153/74; PULSE 84; RESP 18; TEMP 98.7; O2SAT 100
--- NOTE | 2023-02-08 20:05 | NUR ---
PT AMBULATORY TO BED 02
--- NOTE | 2023-02-08 20:12 | NUR ---
Patient being evaluated by physician at bedside.
[2023-02-08 20:25] LABS: BASOPHILS % (AUTO) 0.9 % (0.0-2.0); EOSINOPHILS # (AUTO) 0.1 K/uL (0-0.4); EOSINOPHILS % (AUTO) 2.5 % (0.0-4.0); HEMATOCRIT 32.1 % (36-48); HEMOGLOBIN 10.9 g/dL (12.0-16.0); LYMPHOCYTES # (AUTO) 0.7 K/uL (2.5-16.5); LYMPHOCYTES % (AUTO) 24.6 % (20.5-51.1); MEAN CORPUSCULAR HEMOGLOBIN 32 pg (27-31); MEAN CORPUSCULAR HGB CONC 34 g/dL (33-37); MONOCYTES # (AUTO) 0.3 K/uL (0.8-1.0); MONOCYTES % (AUTO) 9.5 % (1.7-9.3); NEUTROPHILS # (AUTO) 1.8 K/uL (1.8-7.7); NEUTROPHILS % (AUTO) 62.5 % (42.2-75.2); PLATELET COUNT (AUTO) 49 K/uL (140-450); RED BLOOD CELL COUNT(AUTO) 3.45 MIL/uL (4.20-5.40); RED CELL DISTRIBUTION WIDTH 15.6 % (11.6-13.7); WHITE BLOOD COUNT (AUTO) 2.8 K/uL (4.8-10.8)
[2023-02-08 20:32] LABS: APPEARANCE,URINE CLEAR (CLEAR); BILIRUBIN,URINE NEGATIVE (NEGATIVE); BLOOD, URINE TRACE-I (NEGATIVE); COLOR,URINE YELLOW (YELLOW); LEUKOCYTE ESTERASE ,URINE NEGATIVE (NEGATIVE); NITRITE, URINE NEGATIVE (NEGATIVE); PH,URINE 6.5 (5.0-9.0); UGLUCOSE NEGATIVE (NEGATIVE)
--- NOTE | 2023-02-08 20:41 | NUR ---
Patient resting in bed, A/Ox4, chest rise and fall symmetrical, no c/o pain and no s/s of distress, on monitor.
[2023-02-08 20:57] LABS: FREE T4 (FREE THYROXINE) 1.5 ng/dL (0.76-1.46); THYROID STIMULATING HORMONE 0.9 uIU/mL (0.34-3.74)
[2023-02-08 21:20] LABS: ALBUMIN 2.7 g/dL (3.4-5.0); ANION GAP 14.3 (8-16); ASPARTATE AMINOTRANSFERASE 34 U/L (15-37); CARBON DIOXIDE 22.7 mmol/L (21-32); CHLORIDE 108 mmol/L (98-107); CREATININE 0.8 mg/dL (0.6-1.3); SODIUM SERUM 141 mmol/L (136-145); TOTAL BILIRUBIN 2.5 mg/dL (0.0-1.0); UREA NITROGEN, BLOOD 10 mg/dL (7-18)
[2023-02-08 21:21] LABS: GLUCOSE 161 mg/dL (74-106)
[2023-02-08] MEDS ORDERED: LACTULOSE 20 GM/30 ML UDC PO ONE (21:30)
[2023-02-08] MEDS ORDERED: ZOLPIDEM 5 MG TAB PO PRN (21:40)
[2023-02-08] MEDS ORDERED: HYDROcodone/APAP 7.5/325 MG 1 TAB PO PRN (21:40)
[2023-02-08] MEDS ORDERED: POTASSIUM CHLORIDE 10 MEQ TABER PO PRN (21:40)
[2023-02-08] MEDS ORDERED: ACETAMINOPHEN 325 MG TAB PO PRN (21:40)
[2023-02-08] MEDS ORDERED: guaiFENesin DM 200/20 MG-10 ML 10 ML UDC PO PRN (21:40)
[2023-02-08] MEDS ORDERED: DOCUSATE SODIUM 100 MG GELCAP PO PRN (21:40)
[2023-02-08] MEDS ORDERED: ONDANSETRON 4 MG/2 ML VIAL IM/IVP PRN (21:40)
[2023-02-08] MEDS ORDERED: cefTRIAXone 2,000 MG in DEXTROSE 5% 100 ML IV ONE (21:45)
[2023-02-08] MEDS ORDERED: AZITHROMYCIN 500 MG in DEXTROSE 5% 250 ML IV ONE (21:45)
[2023-02-08] MEDS ORDERED: DEXTROSE 50% 50 ML SYR IVP PRN (22:00)
[2023-02-08 22:15] LABS: BARBITURATE, URINE NEGATIVE ng/ml (NEG <=200); BENZODIAZEPINE, URINE NEGATIVE ng/mL (NEG <=200); CANNABINOID, URINE POSITIVE ng/mL (NEG <=50); COCAINE, URINE NEGATIVE ng/mL (NEG <=300); OPIATE, URINE NEGATIVE ng/mL (NEG <=2000); PHENCYCLIDINE SCREEN,URINE NEGATIVE ng/mL (NEG <=25)
--- NOTE | 2023-02-08 22:15 | NUR ---
Patient resting in bed, A/Ox4, chest rise and fall symmetrical, no c/o pain and no s/s of distress, on monitor.
[2023-02-08 22:17] LABS: MAGNESIUM 1.9 mg/dL (1.8-2.4); PHOSPHORUS 3.5 mg/dL (2.5-4.9)
[2023-02-08] MEDS: NACL 0.9% 1,000 ML IV SCH (22:19)
[2023-02-08] MEDS ORDERED: cefTRIAXone 2,000 MG VIAL ONE (22:29)
[2023-02-08 22:35] LABS: PROTHROMBIN TIME 13.5 secs (10.8-13.4)
[2023-02-08] MEDS ORDERED: AZITHROMYCIN 500 MG INJ VIAL IV ONE (22:49)
--- NOTE | 2023-02-08 23:20 | NUR ---
Patient will be admitted to care of Dr. Luther. Admited to telemetry. Will go to room 108B. Belongings list completed. Report to Drew MORA. Drew MORA verbalized understanding of report, no further questions.
[2023-02-08 23:25] VITALS: BP 137/62; PULSE 81; PULSE 86; RESP 18; TEMP 97.4; O2SAT 98
--- NOTE | 2023-02-08 23:45 | NUR ---
Admitted from , with chief complaint of generalized weakness, nausea, decreased appetite , 72 y/o ,Female, Cooperative, on room air, breathing even and unlabored, no s/sx of distress noted. iv sites, clean dry and intact. oriented to call light, bed, phone,television, bathroom, smoking policy,mrsa swab done. visiting hours, procedures, ID bracelet on. Belongings list checked.All safety precautions in place. call light within reach. will continue to montior.
[2023-02-09] VITALS: PULSE 79
--- NOTE | 2023-02-09 02:57 | NUR ---
PATIENT ASLEEP, AROUSABLE BY VOICE.BREATHING EVEN AND UNLABORED. NO S/SX OF DISTRESS NOTED. ALL PRECAUTIONS IN PLACE. CALL LIGHT WITHIN REACH.WILL CONTINUE TO MONITOR.
[2023-02-09 04:00] VITALS: BP 145/67; PULSE 78; PULSE 79; RESP 18; TEMP 96.9; O2SAT 98
[2023-02-09 05:11] LABS: BASOPHILS % (AUTO) 0.8 % (0.0-2.0); EOSINOPHILS # (AUTO) 0.1 K/uL (0-0.4); EOSINOPHILS % (AUTO) 2.4 % (0.0-4.0); HEMATOCRIT 29.3 % (36-48); LYMPHOCYTES # (AUTO) 0.6 K/uL (2.5-16.5); LYMPHOCYTES % (AUTO) 26.1 % (20.5-51.1); MEAN CORPUSCULAR HEMOGLOBIN 32 pg (27-31); MEAN CORPUSCULAR HGB CONC 34 g/dL (33-37); MEAN CORPUSCULAR VOLUME 92.9 fL (80-94); MONOCYTES # (AUTO) 0.2 K/uL (0.8-1.0); MONOCYTES % (AUTO) 10.5 % (1.7-9.3); NEUTROPHILS # (AUTO) 1.3 K/uL (1.8-7.7); NEUTROPHILS % (AUTO) 60.2 % (42.2-75.2); PLATELET COUNT (AUTO) 36 K/uL (140-450); RED BLOOD CELL COUNT(AUTO) 3.16 MIL/uL (4.20-5.40); RED CELL DISTRIBUTION WIDTH 15.9 % (11.6-13.7); WHITE BLOOD COUNT (AUTO) 2.2 K/uL (4.8-10.8)
[2023-02-09 05:33] LABS: ALBUMIN 2.4 g/dL (3.4-5.0); ANION GAP 11.9 (8-16); ASPARTATE AMINOTRANSFERASE 30 U/L (15-37); CARBON DIOXIDE 22.3 mmol/L (21-32); CHLORIDE 114 mmol/L (98-107); CREATININE 0.6 mg/dL (0.6-1.3); GLUCOSE 109 mg/dL (74-106); POTASSIUM 4.2 mmol/L (3.5-5.1); SODIUM SERUM 144 mmol/L (136-145); TOTAL BILIRUBIN 2.2 mg/dL (0.0-1.0); UREA NITROGEN, BLOOD 9 mg/dL (7-18)
[2023-02-09] MEDS: LEVOTHYROXINE 0.1 MG TAB PO SCH (05:49)
[2023-02-09] MEDS: BLOOD GLUCOSE MONITORING 1 DEV DEV FS SCH ×4 (05:55→21:33)
--- NOTE | 2023-02-09 05:57 | NUR ---
SCHEDULED MEDICATION GIVEN. PT TOLERATED WELL. ALL PRECAUTIONS IN PLACE .CALL LIGHT WITHIN REACH. WILL CONTINUE TO MONITOR.
--- NOTE | 2023-02-09 06:51 | NUR ---
BLOOD SUGAR WAS CHECKED WITH PATIENTS MACHINE. PT DID NOT TO BE POKED AND WANTED TO USE HER MONITOR.122 ON HER MONITOR.INSULIN COVERAGE NEEDED. WILL CONTINUE TO MONITOR.
--- NOTE | 2023-02-09 06:59 | NUR ---
PT IS STABLE. NO ACUTE EVENTS THROUGHOUT THE NIGHT. ALL NEEDS MET.NO S/SX OF DISTRESS AT THIS MOMENT. ALL PRECAUTIONS IN PLACE. CALL LIGHT WITHIN REACH. WILL ENDORSE TO DAY NURSE.
--- NOTE | 2023-02-09 07:26 | NUR ---
GOT REPORT FROM NIGHT NURSE, PT AWAKE DISCUSSED POC.[id number]
[2023-02-09 08:00] VITALS: BP 105/47; PULSE 76; PULSE 78; RESP 18; TEMP 97.4; O2SAT 100; O2SAT 98
[2023-02-09] MEDS: SPIRONOLACTONE 50 MG TAB PO SCH ×2 (08:19→21:48)
[2023-02-09] MEDS: PANTOPRAZOLE 40 MG TABEC PO SCH (08:20)
[2023-02-09] MEDS: RIFAXIMIN 550 MG TAB PO SCH ×2 (08:21→21:48)
--- NOTE | 2023-02-09 09:12 | NUR ---
PATIENT HAS BEEN SCREENED AND CATEGORIZED HIGH NUTRITION RISK. PATIENT WILL BE SEEN WITHIN 1-2 DAYS OF ADMISSION. 02/09/23-02/10/[address]
--- NOTE | 2023-02-09 11:19 | NUR ---
DC PLANNING; 72 YRS OLD FEMALE PATIENT WAS ADMITTED FROM HOME WITH A DX OF SYNCOPE ,HEPATIC ENCEPHALOPATHY. PATIENT HAS A HX OF LIVER CIRRHOSIS, HYPOTHYROIDISM, DM AND ANEMIA. CXR AND CT CHEST SHOWED RIGHT SIDED PLEURAL EFFUSION ,SUSPECTING PNEUMONIA. HEAD CT NO ACUTE INTRACRANIAL HEMORRHAGE. ADMINISTERED IV ABX ROCEPHIN AND CONTINUED HOME MEDS. CONSULTED WITH PULMO AND CARDIO. DC PLAN TO GO HOME WHEN STABLE. CM TO FOLLOW
[2023-02-09 12:00] VITALS: BP 113/45; PULSE 72; PULSE 75; RESP 18; TEMP 97.7; O2SAT 100
[2023-02-09] MEDS ORDERED: INSULIN LISPRO SLIDING SCALE 100 UNITS/ML VIAL SUBQ PRN (13:25)
[2023-02-09] MEDS ORDERED: DEXTROSE 50% 50 ML SYR IVP PRN (13:25)
[2023-02-09] MEDS ORDERED: MECLIZINE 25 MG TAB PO PRN (13:45)
[2023-02-09] MEDS: NACL 0.9% 1,000 ML IV SCH (14:20)
--- NOTE | 2023-02-09 15:17 | NUR ---
02/09/23 RD INITIAL ASSESSMENT COMPLETED PLEASE REFER TO NUTRITION ASSESSMENT UNDER CARE ACTIVITY FOR ESTIMATED NUTRITIONAL NEEDS. 1. CONTINUE NPO DIET TOLERATED AND THEN ADVANCE TO CLEAR LIQUID DIET WITH CCHO AND IF PATIENT CAN TOLERATE WELL THEN ADVANCE TO CCHO 60 GRAM DIET ONCE MEDICALLY APPROPRIATE. 2. RD ENCOURAGES PATIENT TO FOLLOW DIABETIC AND LIVER NUTRTION EDUCATION GIVEN ONCE SHE LEAVES THE HOSPITAL. 3. RD TO FOLLOW-UP 3-5 DAYS, MODERATE RISK ALTON [address]
[2023-02-09 16:00] VITALS: BP 130/52; PULSE 86; RESP 18; TEMP 98.3; O2SAT 98
[2023-02-09] MEDS ORDERED: BLOOD GLUCOSE MONITORING 1 DEV DEV FS SCH (16:30)
[2023-02-09] MEDS ORDERED: LACTULOSE 20 GM/30 ML UDC PO SCH (17:00)
--- NOTE | 2023-02-09 19:26 | NUR ---
received pt aaox4 , nid o2 sat wnl , denies pain , iv sites intact and patent , uses restroom , standy assist - fall risk , ensure safety at all times , call light within reach , w/ watery bm - on laxative - due to high ammonia - hx liver cirrhosis , will cont. to monitor , call light within reach .
--- NOTE | 2023-02-09 19:26 | NUR ---
GAVE REPORT TO THE NIGHT NURSE, PT STABLE ,NO DISCOMFORT.[id number]
[2023-02-09 20:00] VITALS: BP 115/70; PULSE 77; RESP 18; TEMP 98.5; O2SAT 99
[2023-02-09] MEDS ORDERED: INSULIN LANTUS 100 UNITS/ML 10 ML VIAL SUBQ SCH (21:00)
[2023-02-09] MEDS ORDERED: CRUSHER, PILL MC ONE (21:35)
[2023-02-09] MEDS: CYCLOBENZAPRINE 10 MG TAB PO SCH (21:48)
[2023-02-09] MEDS: INSULIN LISPRO SLIDING SCALE 100 UNITS/ML VIAL SUBQ PRN (21:55)
--- NOTE | 2023-02-09 22:00 | NUR ---
no complain made , call light within reach , will cont. to monitor .
[2023-02-09] MEDS: AZITHROMYCIN 500 MG in DEXTROSE 5% 250 ML IV SCH (23:26)
--- NOTE | 2023-02-09 23:59 | NUR ---
PER COMMAND OF MY CHARGE NURSE MORGAN SHOOK - ENDORSED PT TO MORGAN MARLEY FOR CONT. OF CARE . Addendum: 02/10/23 at 0117 by Edna Harkins RN ENDORSED TO MORGAN MARLEY HE HAVE TO ASSESS PT'S REACTION TO ZITHROMAX IV - MORGAN MARLEY VERBALIZED UNDERSTANDING .
--- NOTE | 2023-02-10 | NUR ---
RECEIVED REPORT FROM PIEROGI MAKER NURSE MARIA TERESA FOR CONTINUITY OF CARE.
[2023-02-10] MEDS: LACTULOSE 20 GM/30 ML UDC PO SCH ×4 (00:44→19:04)
[2023-02-10] MEDS: NACL 0.9% 1,000 ML IV SCH ×2 (02:48→23:43)
--- NOTE | 2023-02-10 04:01 | NUR ---
VITAL SIGNS TAKEN AND STABLE. PT STATES SHE DOES NOT KNOW HOW MANY TIMES SHE USED THE RESTROOM. WENT TOO MANY TIMES. PT HAS NO COMPLAINS AT THIS TIME. WILL CONTINUE TO MONITOR THE PT.
[2023-02-10 05:31] LABS: BASOPHILS % (AUTO) 0.5 % (0.0-2.0); EOSINOPHILS # (AUTO) 0.1 K/uL (0-0.4); EOSINOPHILS % (AUTO) 1.7 % (0.0-4.0); HEMATOCRIT 30.8 % (36-48); HEMOGLOBIN 10.5 g/dL (12.0-16.0); LYMPHOCYTES # (AUTO) 0.7 K/uL (2.5-16.5); MEAN CORPUSCULAR HEMOGLOBIN 32 pg (27-31); MEAN CORPUSCULAR HGB CONC 34 g/dL (33-37); MEAN CORPUSCULAR VOLUME 93.2 fL (80-94); MONOCYTES # (AUTO) 0.4 K/uL (0.8-1.0); NEUTROPHILS # (AUTO) 2.6 K/uL (1.8-7.7); NEUTROPHILS % (AUTO) 67.8 % (42.2-75.2); PLATELET COUNT (AUTO) 38 K/uL (140-450); RED CELL DISTRIBUTION WIDTH 15.9 % (11.6-13.7); WHITE BLOOD COUNT (AUTO) 3.8 K/uL (4.8-10.8)
[2023-02-10 05:48] LABS: ALBUMIN 2.4 g/dL (3.4-5.0); ANION GAP 11.4 (8-16); ASPARTATE AMINOTRANSFERASE 27 U/L (15-37); CARBON DIOXIDE 21.7 mmol/L (21-32); CHLORIDE 111 mmol/L (98-107); CREATININE 0.7 mg/dL (0.6-1.3); GLUCOSE 183 mg/dL (74-106); POTASSIUM 4.1 mmol/L (3.5-5.1); SODIUM SERUM 140 mmol/L (136-145); TOTAL BILIRUBIN 2.6 mg/dL (0.0-1.0); UREA NITROGEN, BLOOD 9 mg/dL (7-18)
[2023-02-10] MEDS: LEVOTHYROXINE 0.1 MG TAB PO SCH (06:05)
[2023-02-10] MEDS: INSULIN LISPRO SLIDING SCALE 100 UNITS/ML VIAL SUBQ PRN ×3 (06:46→21:04)
[2023-02-10] MEDS: BLOOD GLUCOSE MONITORING 1 DEV DEV FS SCH ×4 (06:47→20:58)
--- NOTE | 2023-02-10 07:00 | NUR ---
RECEIVED BEDSIDE REPORT FROM NIGHTSHIFT NURSE, PT ASLEEP IN BED, WOKE TO NAME AND TOUCH, NO SIGNS OF DISTRESS, NO REPORTS OF PAIN. PLACED CALL LIGHT WITHIN REACH. NO FURTHER NEEDS ARE TO BE MET AT THIS TIME, WILL CONTINUE WITH CARE.
--- NOTE | 2023-02-10 07:11 | NUR ---
ENDORSED PT TO DAY SHIFT RN FOR CONTINUITY OF CARE. PT IS STABLE.
[2023-02-10 08:00] VITALS: BP 118/55; PULSE 79; RESP 19; TEMP 98.6; O2SAT 96
[2023-02-10] MEDS ORDERED: NON-FORMULARY ITEM (Cholecalciferol (Vitamin D3) (Vitamin D3) 1 TAB) PO SCH (09:00)
[2023-02-10] MEDS: CYCLOBENZAPRINE 10 MG TAB PO SCH ×2 (09:00→20:53)
[2023-02-10] MEDS: PANTOPRAZOLE 40 MG TABEC PO SCH (10:22)
[2023-02-10] MEDS: RIFAXIMIN 550 MG TAB PO SCH ×2 (10:22→20:52)
[2023-02-10] MEDS: CHOLECALCIFEROL 1,000 IU TAB PO SCH (10:23)
[2023-02-10] MEDS: SPIRONOLACTONE 50 MG TAB PO SCH ×2 (10:23→20:52)
[2023-02-10] MEDS: INSULIN LANTUS 100 UNITS/ML 10 ML VIAL SUBQ SCH (10:29)
[2023-02-10 16:00] VITALS: BP 136/64; PULSE 76; RESP 19; TEMP 97.8; O2SAT 100
--- NOTE | 2023-02-10 19:15 | NUR ---
ENDORSED TO NIGHTSHIFT NURSE FOR CONTINUITY OF CARE. PT IS AWAKE, RESTING IN BED, NO SIGNS OF DISTRESS, NO REPORTS OF PAIN OR DISCOMFORT. CALL LIGHT WITHIN REACH, NO FURTHER NEEDS ARE TO BE MET AT THIS TIME.
--- NOTE | 2023-02-10 19:16 | NUR ---
RECEIVED PT FROM MORNING SHIFT NURSE. PT IS AOX4, AMBULATORY, ABLE TO VERBALIZE NEEDS AND ABLE TO FOLLOW COMMANDS. PT IS ON ROOM AIR AND ON CCHO DIET. PT HAS IV ON LEFT AC GAUGE 22 SALINE LOCK AND RIGHT FOREARM GAUGE 22 RUNNING WITH NS AT 60ML/HR. PT SKIN IS INTACT. NO COMPLAIN OF PAIN AT THIS TIME. NO S/S OF RESPIRATORY DISTRESS NOTED. ALL SAFETY MEASURES IMPLEMENTED. BED IN LOW POSITION, BED WHEELS ON LOCK AND CALL LIGHT WITHIN REACH.
[2023-02-10 20:00] VITALS: PULSE 76; RESP 18; O2SAT 97
[2023-02-10] MEDS: AZITHROMYCIN 500 MG in DEXTROSE 5% 250 ML IV SCH (20:51)
--- NOTE | 2023-02-10 20:52 | NUR ---
SCHEDULED AND PRESCRIBED MEDICATION WAS GIVEN TO PT EXCEPT FLEXIRIL DUE TO PT JUST TOOK IT PRN. ALL SAFETY MEASURES IMPLEMENTED. BED IN LOW POSITION, BED WHEELS ON LOCK AND CALL LIGHT WITHIN REACH.
--- NOTE | 2023-02-10 21:04 | NUR ---
PT BLOOD GLUCOSE 198. HUMALOG INSULIN 2 UNITS WAS GIVEN TO PT.
--- NOTE | 2023-02-10 22:36 | NUR ---
SCHEDULED AND PRESCRIBED MEDICATION WAS GIVEN TO PT. ALL SAFETY MEASURES IMPLEMENTED. BED IN LOW POSITION, BED WHEELS ON LOCK AND CALL LIGHT WITHIN REACH.
[2023-02-11] VITALS: BP 121/56; PULSE 76; RESP 18; TEMP 97.8; O2SAT 97
[2023-02-11] MEDS: LACTULOSE 20 GM/30 ML UDC PO SCH ×3 (00:05→12:47)
--- NOTE | 2023-02-11 00:05 | NUR ---
SCHEDULED AND PRESCRIBED MEDICATION WAS GIVEN TO PT PER MD ORDER. ALL SAFETY MEASURES IMPLEMENTED. BED IN LOW POSITION, BED WHEELS ON LOCK AND CALL LIGHT WITHIN REACH.
--- NOTE | 2023-02-11 02:00 | NUR ---
PT IS ON SLEEP. CHEST RISE AND FALL SYMMETRICALLY NOTED. RESPIRATION IS EVEN AND UNLABORED. ALL SAFETY MEASURES IMPLEMENTED. BED IN LOW POSITION. BED WHEELS ON LOCK AND CALL LIGHT WITHIN REACH.
[2023-02-11 05:32] LABS: ALBUMIN 2.1 g/dL (3.4-5.0); ANION GAP 10.5 (8-16); ASPARTATE AMINOTRANSFERASE 24 U/L (15-37); CARBON DIOXIDE 22.4 mmol/L (21-32); CHLORIDE 112 mmol/L (98-107); CREATININE 0.6 mg/dL (0.6-1.3); GLUCOSE 118 mg/dL (74-106); POTASSIUM 3.9 mmol/L (3.5-5.1); SODIUM SERUM 141 mmol/L (136-145); TOTAL BILIRUBIN 1.9 mg/dL (0.0-1.0); UREA NITROGEN, BLOOD 7 mg/dL (7-18)
[2023-02-11 05:34] LABS: BASOPHILS % (AUTO) 0.6 % (0.0-2.0); EOSINOPHILS % (AUTO) 2.6 % (0.0-4.0); HEMATOCRIT 27.6 % (36-48); HEMOGLOBIN 9.3 g/dL (12.0-16.0); LYMPHOCYTES # (AUTO) 0.5 K/uL (2.5-16.5); LYMPHOCYTES % (AUTO) 27.8 % (20.5-51.1); MEAN CORPUSCULAR HEMOGLOBIN 31 pg (27-31); MEAN CORPUSCULAR HGB CONC 34 g/dL (33-37); MEAN CORPUSCULAR VOLUME 93.3 fL (80-94); MONOCYTES # (AUTO) 0.2 K/uL (0.8-1.0); MONOCYTES % (AUTO) 11.6 % (1.7-9.3); NEUTROPHILS % (AUTO) 57.4 % (42.2-75.2); PLATELET COUNT (AUTO) 32 K/uL (140-450); RED BLOOD CELL COUNT(AUTO) 2.96 MIL/uL (4.20-5.40); RED CELL DISTRIBUTION WIDTH 16.2 % (11.6-13.7)
[2023-02-11 05:38] LABS: WHITE BLOOD COUNT (AUTO) 1.8 K/uL (4.8-10.8)
--- NOTE | 2023-02-11 05:46 | NUR ---
NOTIFIED DR. BERGERON REGARDING PT'S CRITICAL VALUE OF WBC-1.2 AND PLATELET 32
[2023-02-11] MEDS: LEVOTHYROXINE 0.1 MG TAB PO SCH (05:54)
--- NOTE | 2023-02-11 05:54 | NUR ---
SCHEDULED AND PRESCRIBED MEDICATION WAS GIVEN TO PT PER MD ORDER, ALL SAFETY MEASURES IMPLEMENTED. BED WHEELS ON LOCK AND CALL LIGHT WITHIN REACH.
[2023-02-11] MEDS: BLOOD GLUCOSE MONITORING 1 DEV DEV FS SCH ×2 (06:33→11:30)
--- NOTE | 2023-02-11 06:33 | NUR ---
PT BLOOD GLUCOSE IS 124. NO COVERAGE NEEDED.
--- NOTE | 2023-02-11 07:21 | NUR ---
PT IS STABLE. ENDORSED PT TO MORNING SHIFT NURSE FOR CONTINUITY OF CARE.
--- NOTE | 2023-02-11 07:22 | NUR ---
RECEIVED BEDSIDE REPORT FROM NIGHTSHIFT NURSE. PT ASLEEP IN BED, WOKE TO NAME AND TOUCH, NO SIGNS OF DISTRESS, NO REPORTS OF PAIN/DISCOMFORT. MADE SURE CALL LIGHT WITHIN REACH, WILL CONTINUE WITH PT CARE.
[2023-02-11 08:00] VITALS: BP 131/52; PULSE 76; RESP 18; TEMP 97; O2SAT 96; O2SAT 97
[2023-02-11] MEDS: CYCLOBENZAPRINE 10 MG TAB PO SCH (09:00)
[2023-02-11] MEDS: SPIRONOLACTONE 50 MG TAB PO SCH (09:13)
[2023-02-11] MEDS: CHOLECALCIFEROL 1,000 IU TAB PO SCH (09:14)
[2023-02-11] MEDS: PANTOPRAZOLE 40 MG TABEC PO SCH (09:15)
[2023-02-11] MEDS: RIFAXIMIN 550 MG TAB PO SCH (09:15)
[2023-02-11] MEDS: INSULIN LANTUS 100 UNITS/ML 10 ML VIAL SUBQ SCH (09:19)
[2023-02-11] MEDS ORDERED: LACT10SO11 PO (11:04)
[2023-02-11] MEDS: INSULIN LISPRO SLIDING SCALE 100 UNITS/ML VIAL SUBQ PRN (12:42)
[2023-02-11 15:33] VITALS: BP 131/52; PULSE 76; RESP 18; TEMP 97
--- NOTE | 2023-02-11 18:00 | NUR ---
PT INFORMED OF DISCHARGE, PT VERBALIZE UNDERSTANDING, PAPERWORK SIGNED, IV REMOVED, ID BAND REMOVED. PT LEFT UNIT VIA WHEELCHAIR WITH DAUGHTER. NO SIGNS OF DISTRESS, VITALS WITHIN NORMAL LIMITS.
== END 2023-02-11 16:35 | disposition home or self-care (01) | DRG 441 ==
LOC: MED 18:55 → MTU 21:46
PROVIDERS: ADMIT Student in an Organized Health Care Education/Training Program; ATTEND Student in an Organized Health Care Education/Training Program
DX: K76.82 Hepatic encephalopathy (principal); E43 Unspecified severe protein-calorie malnutrition; J90 Pleural effusion, not elsewhere classified; K75.81 Nonalcoholic steatohepatitis (NASH); K74.60 Unspecified cirrhosis of liver; E03.9 Hypothyroidism, unspecified; D64.9 Anemia, unspecified; E55.9 Vitamin D deficiency, unspecified; I11.0 Hypertensive heart disease with heart failure; I50.9 Heart failure, unspecified; F12.10 Cannabis abuse, uncomplicated; I70.0 Atherosclerosis of aorta; E11.9 Type 2 diabetes mellitus without complications; Z85.43 Personal history of malignant neoplasm of ovary; Z85.850 Personal history of malignant neoplasm of thyroid; Z82.3 Family history of stroke; Z80.3 Family history of malignant neoplasm of breast; Z68.28 Body mass index [BMI] 28.0-28.9, adult
CPT/HCPCS: 36415; 70450; 71045; 76604; 76705; 80053; 80305; 81003; 82140; 82550; 82948; 83036; 83735; 83880; 84100; 84439; 84443; 84484; 85025; 85610; 85730; 87040; 87081; 93005; 93880; 96365; 96375; 97110; 97530; 99285; J0456; J0696; J1815; J7060; Q0092

== ENCOUNTER 2023-05-16 19:21 | Emergency (ER) | payer OTHER ==
[~2023-05-16] VITALS: Ht 167.6 cm; Wt 81.6 kg
[~2023-05-16 19:21] MED LIST changes: -ERGO2000 PO; -FERR325E14 PO; -NITR100C7 PO; -PHEN-1877 PO; -RIFA550T PO
[2023-05-16 20:09] VITALS: BP 123/62; PULSE 79; RESP 17; TEMP 98.5; O2SAT 99
[2023-05-16 20:30] VITALS: TEMP 98.3
[2023-05-16] MEDS ORDERED: NACL 0.9% 1,000 ML IV ONE (21:25)
[2023-05-16 21:38] LABS: BASOPHILS % (AUTO) 0.6 % (0.0-2.0); EOSINOPHILS % (AUTO) 0.8 % (0.0-4.0); HEMATOCRIT 32.6 % (36-48); HEMOGLOBIN 11.2 g/dL (12.0-16.0); LYMPHOCYTES # (AUTO) 0.3 K/uL (2.5-16.5); LYMPHOCYTES % (AUTO) 30.4 % (20.5-51.1); MEAN CORPUSCULAR HEMOGLOBIN 32 pg (27-31); MEAN CORPUSCULAR HGB CONC 35 g/dL (33-37); MONOCYTES # (AUTO) 0.2 K/uL (0.8-1.0); MONOCYTES % (AUTO) 19.4 % (1.7-9.3); NEUTROPHILS # (AUTO) 0.5 K/uL (1.8-7.7); NEUTROPHILS % (AUTO) 48.8 % (42.2-75.2); PLATELET COUNT (AUTO) 27 K/uL (140-450); RED BLOOD CELL COUNT(AUTO) 3.47 MIL/uL (4.20-5.40); RED CELL DISTRIBUTION WIDTH 16.4 % (11.6-13.7)
[2023-05-16 21:46] LABS: APPEARANCE,URINE CLEAR (CLEAR); BILIRUBIN,URINE NEGATIVE (NEGATIVE); BLOOD, URINE TRACE-I (NEGATIVE); COLOR,URINE YELLOW (YELLOW); LEUKOCYTE ESTERASE ,URINE NEGATIVE (NEGATIVE); NITRITE, URINE NEGATIVE (NEGATIVE); PROTEIN,URINE NEGATIVE (NEGATIVE); UGLUCOSE 3+ (NEGATIVE)
[2023-05-16 21:46] LABS: ALANINE AMINOTRANSFERASE 25 U/L (12-78); ALBUMIN 2.7 g/dL (3.4-5.0); ALKALINE PHOSPHATASE 127 U/L (50-136); ANION GAP 12.2 (8-16); ASPARTATE AMINOTRANSFERASE 32 U/L (15-37); CALCIUM 8.3 mg/dL (8.5-10.1); CARBON DIOXIDE 19.1 mmol/L (21-32); CHLORIDE 105 mmol/L (98-107); CREATININE 0.8 mg/dL (0.6-1.3); GLUCOSE 144 mg/dL (74-106); POTASSIUM 4.3 mmol/L (3.5-5.1); SODIUM SERUM 132 mmol/L (136-145); TOTAL BILIRUBIN 2.5 mg/dL (0.0-1.0); TOTAL PROTEIN, SERUM 5.7 g/dL (6.4-8.2); UREA NITROGEN, BLOOD 10 mg/dL (7-18)
[2023-05-16 21:53] LABS: BACTERIA,URINE FEW /HPF (None Seen); SQUAMOUS EPITHELIAL CELL,UR 0-3 (FEW) /LPF (0-3 (FEW)); WBC,URINE 0-5 /HPF (0-5)
[2023-05-16] MEDS ORDERED: AZIT250T4 PO (23:09)
[2023-05-16 23:18] VITALS: BP 133/53; PULSE 81; RESP 14; O2SAT 98
== END 2023-05-16 23:17 | disposition home or self-care (01) ==
LOC: MED 19:21
DX: R53.1 Weakness (principal); E03.9 Hypothyroidism, unspecified; Z79.899 Other long term (current) drug therapy
CPT/HCPCS: 36415; 71045; 80053; 81001; 82140; 82553; 82948; 85025; 96360; 99284; J7030

== ENCOUNTER 2023-06-21 11:12 | Inpatient (IN) | payer OTHER ==
[~2023-06-21] VITALS: Ht 167.6 cm; Wt 73.9 kg
[2023-06-21] VITALS (11 sets, daily range): BP systolic 123–125; BP diastolic 59–60; PULSE 69–78; RESP 17–18; TEMP 97.2–97.7; O2SAT 98–99
[~2023-06-21 11:12] MED LIST changes: +AZIT250T4 PO
[2023-06-21] MEDS ORDERED: KETOROLAC 30 MG/ML VIAL IVP ONE (12:35)
[2023-06-21 13:24] LABS: BASOPHILS % (AUTO) 0.4 % (0.0-2.0); HEMATOCRIT 34.2 % (36-48); HEMOGLOBIN 11.6 g/dL (12.0-16.0); LYMPHOCYTES # (AUTO) 0.6 K/uL (2.5-16.5); LYMPHOCYTES % (AUTO) 14.6 % (20.5-51.1); MEAN CORPUSCULAR HEMOGLOBIN 32 pg (27-31); MEAN CORPUSCULAR HGB CONC 34 g/dL (33-37); MEAN CORPUSCULAR VOLUME 95.5 fL (80-94); MONOCYTES # (AUTO) 0.4 K/uL (0.8-1.0); NEUTROPHILS # (AUTO) 2.9 K/uL (1.8-7.7); PLATELET COUNT (AUTO) 43 K/uL (140-450); RED BLOOD CELL COUNT(AUTO) 3.58 MIL/uL (4.20-5.40); RED CELL DISTRIBUTION WIDTH 18.1 % (11.6-13.7)
[2023-06-21 13:30] LABS: APPEARANCE,URINE CLEAR (CLEAR); BILIRUBIN,URINE NEGATIVE (NEGATIVE); BLOOD, URINE 1+ (NEGATIVE); COLOR,URINE YELLOW (YELLOW); LEUKOCYTE ESTERASE ,URINE 2+ (NEGATIVE); NITRITE, URINE NEGATIVE (NEGATIVE); PROTEIN,URINE NEGATIVE (NEGATIVE); UGLUCOSE NEGATIVE (NEGATIVE); UROBILINOGEN,URINE 0.2 EU/dL (0.2 - 1)
[2023-06-21 13:33] LABS: INR 1.34 (0.8-1.2); PARTIAL THROMBOPLASTIN TIME 27.9 secs (22-35.6); PROTHROMBIN TIME 13.9 secs (10.8-13.4)
[2023-06-21 13:44] LABS: LACTIC ACID 2.1 mmol/L (0.4-2.0)
[2023-06-21 13:47] LABS: ALANINE AMINOTRANSFERASE 23 U/L (12-78); ALBUMIN 2.7 g/dL (3.4-5.0); ALKALINE PHOSPHATASE 145 U/L (50-136); ANION GAP 10.2 (8-16); ASPARTATE AMINOTRANSFERASE 28 U/L (15-37); CALCIUM 8.7 mg/dL (8.5-10.1); CARBON DIOXIDE 25.1 mmol/L (21-32); CHLORIDE 108 mmol/L (98-107); CREATININE 0.8 mg/dL (0.6-1.3); GLUCOSE 150 mg/dL (74-106); POTASSIUM 4.3 mmol/L (3.5-5.1); SODIUM SERUM 139 mmol/L (136-145); TOTAL BILIRUBIN 4.9 mg/dL (0.0-1.0); TOTAL PROTEIN, SERUM 6.1 g/dL (6.4-8.2); UREA NITROGEN, BLOOD 10 mg/dL (7-18)
[2023-06-21 14:18] LABS: BACTERIA,URINE >30 (MANY) /HPF (None Seen); SQUAMOUS EPITHELIAL CELL,UR 0-3 (FEW) /LPF (0-3 (FEW))
[2023-06-21] MEDS ORDERED: ACETAMINOPHEN 325 MG TAB PO PRN (15:10)
[2023-06-21] MEDS ORDERED: ONDANSETRON 4 MG/2 ML VIAL IM/IVP PRN (15:10)
[2023-06-21] MEDS ORDERED: ZOLPIDEM 5 MG TAB PO PRN (15:10)
[2023-06-21] MEDS ORDERED: POTASSIUM CHLORIDE 10 MEQ TABER PO PRN (15:10)
[2023-06-21] MEDS ORDERED: HYDROcodone/APAP 7.5/325 MG 1 TAB PO PRN (15:10)
[2023-06-21] MEDS ORDERED: MORPHINE SULFATE 2 MG/ML SYR IVP PRN (15:10)
[2023-06-21] MEDS ORDERED: DOCUSATE SODIUM 100 MG GELCAP PO PRN (15:10)
[2023-06-21] MEDS ORDERED: guaiFENesin DM 200/20 MG-10 ML 10 ML UDC PO PRN (15:10)
[2023-06-21] MEDS ORDERED: DEXTROSE 50% 50 ML SYR IVP PRN (15:30)
[2023-06-21 16:13] LABS: INR 1.37 (0.8-1.2); PROTHROMBIN TIME 14.2 secs (10.8-13.4)
[2023-06-21 16:27] LABS: AMYLASE 69 U/L (25-115); CHOL/HDL RATIO 2.4 (1-4.5); CHOLESTEROL 101 mg/dL (<200); FREE T4 (FREE THYROXINE) 1.43 ng/dL (0.76-1.46); HDL CHOLESTEROL 42 mg/dL (40-60); LDL (CALC) 49 mg/dL (60-100); LIPASE 51 U/L (16-77); MAGNESIUM 1.7 mg/dL (1.8-2.4); THYROID STIMULATING HORMONE 0.69 uIU/mL (0.34-3.74); TRIGLYCERIDES 54 mg/dL (30-150)
[2023-06-21] MEDS: DEXT 5% /NACL 0.9% 1,000 ML IV SCH (16:50)
[2023-06-21] MEDS: INSULIN LISPRO SLIDING SCALE 100 UNITS/ML VIAL SUBQ PRN ×2 (17:00→20:57)
[2023-06-21] MEDS: BLOOD GLUCOSE MONITORING 1 DEV DEV FS SCH ×2 (17:03→20:52)
[2023-06-21] MEDS ORDERED: MAGNESIUM OXIDE 400 MG TAB PO PRN (17:50)
[2023-06-21] MEDS: SPIRONOLACTONE 25 MG TAB PO SCH (20:55)
[2023-06-22] VITALS: BP 118/57; PULSE 72; RESP 18; TEMP 98.1; O2SAT 97
[2023-06-22] MEDS: DEXT 5% /NACL 0.9% 1,000 ML IV SCH ×4 (00:35→20:35)
[2023-06-22 04:00] VITALS: BP 100/44; PULSE 65; PULSE 67; RESP 17; TEMP 98.2; O2SAT 98
[2023-06-22] MEDS: LEVOTHYROXINE 0.1 MG TAB PO SCH (06:00)
[2023-06-22] MEDS: BLOOD GLUCOSE MONITORING 1 DEV DEV FS SCH ×4 (06:42→20:57)
[2023-06-22 07:12] LABS: CHLORIDE 112 mmol/L (98-107); CREATININE 0.7 mg/dL (0.6-1.3); GLUCOSE 119 mg/dL (74-106); SODIUM SERUM 142 mmol/L (136-145); UREA NITROGEN, BLOOD 12 mg/dL (7-18)
[2023-06-22 07:17] LABS: BASOPHILS % (AUTO) 0.6 % (0.0-2.0); EOSINOPHILS % (AUTO) 2.1 % (0.0-4.0); HEMATOCRIT 27.9 % (36-48); HEMOGLOBIN 9.7 g/dL (12.0-16.0); LYMPHOCYTES # (AUTO) 0.4 K/uL (2.5-16.5); LYMPHOCYTES % (AUTO) 22.6 % (20.5-51.1); MEAN CORPUSCULAR HEMOGLOBIN 33 pg (27-31); MEAN CORPUSCULAR HGB CONC 35 g/dL (33-37); MEAN CORPUSCULAR VOLUME 94.4 fL (80-94); MONOCYTES # (AUTO) 0.2 K/uL (0.8-1.0); MONOCYTES % (AUTO) 11.2 % (1.7-9.3); NEUTROPHILS # (AUTO) 1.2 K/uL (1.8-7.7); NEUTROPHILS % (AUTO) 63.5 % (42.2-75.2); PLATELET COUNT (AUTO) 29 K/uL (140-450); RED BLOOD CELL COUNT(AUTO) 2.96 MIL/uL (4.20-5.40); RED CELL DISTRIBUTION WIDTH 17.6 % (11.6-13.7)
[2023-06-22 07:20] LABS: WHITE BLOOD COUNT (AUTO) 1.9 K/uL (4.8-10.8)
[2023-06-22 08:00] VITALS: BP 138/60; PULSE 70; PULSE 88; RESP 17; TEMP 98.5; O2SAT 99
[2023-06-22 08:08] LABS: HEMOGLOBIN A1C 5.5 % (4.8-5.6); T4 (THYROXINE) 8.6 ug/dL (4.5-12.0)
[2023-06-22] MEDS: INSULIN LANTUS 100 UNITS/ML 10 ML VIAL SUBQ SCH (08:48)
[2023-06-22] MEDS: SPIRONOLACTONE 25 MG TAB PO SCH ×2 (09:02→20:57)
[2023-06-22] MEDS: PANTOPRAZOLE 40 MG TABEC PO SCH (09:03)
[2023-06-22 16:00] VITALS: BP 122/57; PULSE 69; RESP 17; TEMP 98.2; O2SAT 99
[2023-06-22 20:00] VITALS: BP 132/60; PULSE 67; RESP 18; TEMP 97.7; O2SAT 98
[2023-06-23] MEDS: DEXT 5% /NACL 0.9% 1,000 ML IV SCH ×2 (03:13→16:35)
[2023-06-23 04:00] VITALS: BP 109/56; PULSE 71; RESP 18; TEMP 97.6; O2SAT 97
[2023-06-23] MEDS ORDERED: cefTRIAXone 1,000 MG VIAL ONE (06:07)
[2023-06-23] MEDS: LEVOTHYROXINE 0.1 MG TAB PO SCH (06:22)
[2023-06-23] MEDS: BLOOD GLUCOSE MONITORING 1 DEV DEV FS SCH ×3 (06:31→16:38)
[2023-06-23 07:31] LABS: BASOPHILS % (AUTO) 0.7 % (0.0-2.0); EOSINOPHILS # (AUTO) 0.1 K/uL (0-0.4); EOSINOPHILS % (AUTO) 2.3 % (0.0-4.0); HEMATOCRIT 28.5 % (36-48); HEMOGLOBIN 9.9 g/dL (12.0-16.0); LYMPHOCYTES # (AUTO) 0.5 K/uL (2.5-16.5); LYMPHOCYTES % (AUTO) 21.1 % (20.5-51.1); MEAN CORPUSCULAR HEMOGLOBIN 33 pg (27-31); MEAN CORPUSCULAR HGB CONC 35 g/dL (33-37); MEAN CORPUSCULAR VOLUME 95.2 fL (80-94); MONOCYTES # (AUTO) 0.2 K/uL (0.8-1.0); MONOCYTES % (AUTO) 10.6 % (1.7-9.3); NEUTROPHILS # (AUTO) 1.4 K/uL (1.8-7.7); NEUTROPHILS % (AUTO) 65.3 % (42.2-75.2); PLATELET COUNT (AUTO) 35 K/uL (140-450); RED BLOOD CELL COUNT(AUTO) 2.99 MIL/uL (4.20-5.40); RED CELL DISTRIBUTION WIDTH 17.7 % (11.6-13.7); WHITE BLOOD COUNT (AUTO) 2.2 K/uL (4.8-10.8)
[2023-06-23 08:00] VITALS: PULSE 75; RESP 18; TEMP 98.2; O2SAT 98
[2023-06-23 08:14] LABS: CHLORIDE 112 mmol/L (98-107); CREATININE 0.7 mg/dL (0.6-1.3); UREA NITROGEN, BLOOD 10 mg/dL (7-18)
[2023-06-23 08:53] LABS: CALCIUM 7.7 mg/dL (8.5-10.1)
[2023-06-23] MEDS: INSULIN LANTUS 100 UNITS/ML 10 ML VIAL SUBQ SCH (09:00)
[2023-06-23] MEDS ORDERED: CEPH500C16 PO (09:24)
[2023-06-23] MEDS: PANTOPRAZOLE 40 MG TABEC PO SCH (09:31)
[2023-06-23] MEDS: SPIRONOLACTONE 25 MG TAB PO SCH (09:31)
[2023-06-23 09:34] LABS: ANION GAP 13.1 (8-16); CARBON DIOXIDE 21.9 mmol/L (21-32); GLUCOSE 105 mg/dL (74-106); SODIUM SERUM 143 mmol/L (136-145)
[2023-06-23] MEDS: INSULIN LISPRO SLIDING SCALE 100 UNITS/ML VIAL SUBQ PRN (12:03)
[2023-06-23 16:00] VITALS: BP 139/59; PULSE 69; RESP 18; TEMP 98; O2SAT 99
[2023-06-23 18:45] VITALS: BP 139/59; PULSE 69; RESP 18; TEMP 98
== END 2023-06-23 19:40 | disposition home health service (06) | DRG 871 ==
LOC: MED 11:12 → MTU 14:26
PROVIDERS: ADMIT Family Medicine; ATTEND Family Medicine
DX: A41.9 Sepsis, unspecified organism (principal); E43 Unspecified severe protein-calorie malnutrition; N39.0 Urinary tract infection, site not specified; D61.818 Other pancytopenia; K52.89 Other specified noninfective gastroenteritis and colitis; E03.9 Hypothyroidism, unspecified; E11.9 Type 2 diabetes mellitus without complications; K74.60 Unspecified cirrhosis of liver; K52.9 Noninfective gastroenteritis and colitis, unspecified; K76.0 Fatty (change of) liver, not elsewhere classified; D63.8 Anemia in other chronic diseases classified elsewhere; Z85.43 Personal history of malignant neoplasm of ovary; Z82.3 Family history of stroke; Z83.3 Family history of diabetes mellitus; Z80.3 Family history of malignant neoplasm of breast; Z68.26 Body mass index [BMI] 26.0-26.9, adult
CPT/HCPCS: 36415; 80048; 80053; 81001; 82150; 82948; 83036; 83605; 83690; 83735; 83880; 84100; 84436; 84439; 84443; 84479; 84484; 85025; 85610; 85730; 87040; 87081; 93005; 96365; 96375; 99285; J0694; J0696; J1815; J1885; J7060

== ENCOUNTER 2023-09-21 17:13 | Emergency (ER) | payer OTHER ==
[~2023-09-21] VITALS: Ht 167.6 cm; Wt 72.1 kg
[~2023-09-21 17:13] MED LIST changes: -AZIT250T4 PO; +CEPH500C16 PO
[2023-09-21 17:16] VITALS: BP 133/66; PULSE 75; RESP 20; TEMP 97.7; O2SAT 100
[2023-09-21 18:10] LABS: BASOPHILS % (AUTO) 0.6 % (0.0-2.0); EOSINOPHILS % (AUTO) 1.5 % (0.0-4.0); HEMOGLOBIN 10.6 g/dL (12.0-16.0); LYMPHOCYTES # (AUTO) 0.5 K/uL (2.5-16.5); LYMPHOCYTES % (AUTO) 17.1 % (20.5-51.1); MEAN CORPUSCULAR HEMOGLOBIN 30 pg (27-31); MEAN CORPUSCULAR HGB CONC 33 g/dL (33-37); MEAN CORPUSCULAR VOLUME 90.9 fL (80-94); MONOCYTES # (AUTO) 0.3 K/uL (0.8-1.0); MONOCYTES % (AUTO) 9.5 % (1.7-9.3); NEUTROPHILS # (AUTO) 2.3 K/uL (1.8-7.7); NEUTROPHILS % (AUTO) 71.3 % (42.2-75.2); PLATELET COUNT (AUTO) 49 K/uL (140-450); RED BLOOD CELL COUNT(AUTO) 3.52 MIL/uL (4.20-5.40); RED CELL DISTRIBUTION WIDTH 16.2 % (11.6-13.7); WHITE BLOOD COUNT (AUTO) 3.2 K/uL (4.8-10.8)
[2023-09-21 18:16] LABS: APPEARANCE,URINE SL CLOUDY (CLEAR); BILIRUBIN,URINE NEGATIVE (NEGATIVE); BLOOD, URINE 1+ (NEGATIVE); COLOR,URINE YELLOW (YELLOW); LEUKOCYTE ESTERASE ,URINE 1+ (NEGATIVE); NITRITE, URINE NEGATIVE (NEGATIVE); PROTEIN,URINE NEGATIVE (NEGATIVE); UGLUCOSE 3+ (NEGATIVE)
[2023-09-21 18:18] LABS: ANION GAP 12.4 (8-16); CALCIUM 9.5 mg/dL (8.5-10.1); CARBON DIOXIDE 24.4 mmol/L (21-32); CHLORIDE 108 mmol/L (98-107); CREATININE 0.9 mg/dL (0.6-1.3); GLUCOSE 146 mg/dL (74-106); POTASSIUM 3.8 mmol/L (3.5-5.1); SODIUM SERUM 141 mmol/L (136-145); UREA NITROGEN, BLOOD 12 mg/dL (7-18)
[2023-09-21 18:25] LABS: ALBUMIN 2.7 g/dL (3.4-5.0); BILIRUBIN,DIRECT 1.1 mg/dL (0.0-0.3); RBC,URINE 0-5 /HPF (0-5); TOTAL BILIRUBIN 2.8 mg/dL (0.0-1.0); TOTAL PROTEIN, SERUM 7.4 g/dL (6.4-8.2)
[2023-09-21 18:26] LABS: BACTERIA,URINE 0-2 /HPF (None Seen); MUCUS,URINE None Seen /LPF (None Seen); SQUAMOUS EPITHELIAL CELL,UR 0-3 (FEW) /LPF (0-3 (FEW)); WBC,URINE 0-5 /HPF (0-5)
[2023-09-21 18:59] VITALS: BP 135/47; PULSE 71; RESP 16; O2SAT 97
== END 2023-09-21 19:03 | disposition home or self-care (01) ==
LOC: MED 17:13
DX: K74.60 Unspecified cirrhosis of liver (principal); E11.9 Type 2 diabetes mellitus without complications; K21.9 Gastro-esophageal reflux disease without esophagitis; E03.9 Hypothyroidism, unspecified; Z90.710 Acquired absence of both cervix and uterus; Z79.899 Other long term (current) drug therapy; Z79.2 Long term (current) use of antibiotics; Z79.4 Long term (current) use of insulin
CPT/HCPCS: 36415; 80048; 80076; 81001; 83690; 85025; 87086; 99284

== ENCOUNTER 2024-01-18 18:22 | Emergency (ER) | payer OTHER ==
[~2024-01-18] VITALS: Ht 167.6 cm; Wt 79.4 kg
[2024-01-18 18:31] VITALS: BP 123/52; PULSE 73; RESP 16; TEMP 98; O2SAT 100
[2024-01-18 19:37] VITALS: BP 123/52; PULSE 73; RESP 16; TEMP 98; O2SAT 100
== END 2024-01-18 19:37 | disposition home or self-care (01) ==
LOC: MED 18:22
DX: R06.02 Shortness of breath (principal); R14.0 Abdominal distension (gaseous); R03.0 Elevated blood-pressure reading, without diagnosis of hypertension; E11.9 Type 2 diabetes mellitus without complications; K21.9 Gastro-esophageal reflux disease without esophagitis; Z85.89 Personal history of malignant neoplasm of other organs and systems; Z87.19 Personal history of other diseases of the digestive system; Z90.710 Acquired absence of both cervix and uterus; Z90.89 Acquired absence of other organs; Z79.4 Long term (current) use of insulin; Z79.2 Long term (current) use of antibiotics; Z79.899 Other long term (current) drug therapy
CPT/HCPCS: 99284

== ENCOUNTER 2024-01-29 18:04 | Emergency (ER) | payer OTHER ==
[~2024-01-29] VITALS: Ht 167.6 cm; Wt 79.1 kg
[2024-01-29 18:19] VITALS: BP 130/50; PULSE 80; RESP 18; TEMP 97.8; O2SAT 99
[2024-01-29 19:05] VITALS: BP 129/55; PULSE 76; RESP 18; TEMP 97.8
[2024-01-29 19:06] VITALS: O2SAT 99
== END 2024-01-29 21:14 | disposition home or self-care (01) ==
LOC: MED 18:04
DX: R06.02 Shortness of breath (principal); R14.0 Abdominal distension (gaseous); K21.9 Gastro-esophageal reflux disease without esophagitis; E03.9 Hypothyroidism, unspecified; E11.9 Type 2 diabetes mellitus without complications; N28.9 Disorder of kidney and ureter, unspecified; Z79.899 Other long term (current) drug therapy; Z79.4 Long term (current) use of insulin; Z90.710 Acquired absence of both cervix and uterus
CPT/HCPCS: 71045; 99284

== ENCOUNTER 2024-02-27 18:04 | Emergency (ER) | payer OTHER ==
[~2024-02-27] VITALS: Ht 167.6 cm; Wt 69.9 kg
[2024-02-27 18:24] VITALS: BP 127/53; PULSE 78; RESP 22; TEMP 98.3; O2SAT 98
[2024-02-27] MEDS: KETOROLAC 30 MG/ML VIAL IM ONE (19:26)
[2024-02-27] MEDS ORDERED: METH-1681 PO (19:41)
[2024-02-27] MEDS ORDERED: CAPS1ADH5 TP (19:41)
[2024-02-27] MEDS ORDERED: IBUP-2213 PO (19:41)
== END 2024-02-27 19:58 | disposition home or self-care (01) ==
LOC: MED 18:04
DX: S39.012A Strain of muscle, fascia and tendon of lower back, initial encounter (principal); E11.9 Type 2 diabetes mellitus without complications; K21.9 Gastro-esophageal reflux disease without esophagitis; E03.9 Hypothyroidism, unspecified; Z90.710 Acquired absence of both cervix and uterus; Z98.890 Other specified postprocedural states; Z79.899 Other long term (current) drug therapy; Z79.4 Long term (current) use of insulin; X58.XXXA Exposure to other specified factors, initial encounter; Y92.89 Other specified places as the place of occurrence of the external cause; Y93.89 Activity, other specified; Y99.8 Other external cause status
CPT/HCPCS: 96372; 99283; J1885

== ENCOUNTER 2024-03-01 10:25 | Emergency (ER) | payer OTHER ==
[~2024-03-01] VITALS: Ht 167.6 cm; Wt 71.2 kg
[~2024-03-01 10:25] MED LIST changes: +CAPS1ADH5 TP; +IBUP-2213 PO; +METH-1681 PO
[2024-03-01 10:34] VITALS: BP 110/59; PULSE 77; RESP 18; TEMP 97.6; O2SAT 98
[2024-03-01] MEDS: SODIUM PHOSPHATE 118 ML ENEM RC ONE (12:37)
[2024-03-01] MEDS ORDERED: MAGN296S70 PO (13:10)
[2024-03-01] MEDS ORDERED: METH-1681 PO (13:37)
== END 2024-03-01 13:45 | disposition home or self-care (01) ==
LOC: MED 10:25
DX: K59.00 Constipation, unspecified (principal); G89.29 Other chronic pain; M54.50 Low back pain, unspecified; E11.9 Type 2 diabetes mellitus without complications; K21.9 Gastro-esophageal reflux disease without esophagitis; E03.9 Hypothyroidism, unspecified; Z87.448 Personal history of other diseases of urinary system; Z90.710 Acquired absence of both cervix and uterus; Z98.890 Other specified postprocedural states; Z79.899 Other long term (current) drug therapy; Z79.4 Long term (current) use of insulin
CPT/HCPCS: 74018; 99284; Q0092

== ENCOUNTER 2024-03-04 16:23 | Inpatient (IN) | payer OTHER ==
[~2024-03-04] VITALS: Ht 167.6 cm; Wt 71.4 kg
[~2024-03-04 16:23] MED LIST changes: +MAGN296S70 PO
[2024-03-04 16:30] VITALS: BP 156/66; PULSE 85; RESP 16; TEMP 97.7; O2SAT 97
[2024-03-04 17:54] LABS: BASOPHILS % (AUTO) 0.5 % (0.0-2.0); EOSINOPHILS # (AUTO) 0.1 K/uL (0-0.4); EOSINOPHILS % (AUTO) 1.9 % (0.0-4.0); HEMATOCRIT 40.2 % (36-48); HEMOGLOBIN 13.8 g/dL (12.0-16.0); LYMPHOCYTES # (AUTO) 0.6 K/uL (2.5-16.5); LYMPHOCYTES % (AUTO) 17.5 % (20.5-51.1); MEAN CORPUSCULAR HEMOGLOBIN 35 pg (27-31); MEAN CORPUSCULAR HGB CONC 34 g/dL (33-37); MEAN CORPUSCULAR VOLUME 103.3 fL (80-94); MONOCYTES # (AUTO) 0.4 K/uL (0.8-1.0); MONOCYTES % (AUTO) 12.4 % (1.7-9.3); NEUTROPHILS # (AUTO) 2.1 K/uL (1.8-7.7); NEUTROPHILS % (AUTO) 67.7 % (42.2-75.2); PLATELET COUNT (AUTO) 52 K/uL (140-450); RED CELL DISTRIBUTION WIDTH 16.9 % (11.6-13.7); WHITE BLOOD COUNT (AUTO) 3.2 K/uL (4.8-10.8)
[2024-03-04 18:09] LABS: ANION GAP 14.1 (8-16); CALCIUM 9.1 mg/dL (8.5-10.1); CARBON DIOXIDE 21.2 mmol/L (21-32); CHLORIDE 105 mmol/L (98-107); GLUCOSE 212 mg/dL (74-106); POTASSIUM 4.3 mmol/L (3.5-5.1); SODIUM SERUM 136 mmol/L (136-145); UREA NITROGEN, BLOOD 9 mg/dL (7-18)
[2024-03-04 18:16] LABS: INR 1.22 (0.8-1.2); PARTIAL THROMBOPLASTIN TIME 27.6 secs (22-35.6); PROTHROMBIN TIME 12.7 secs (10.8-13.4)
[2024-03-04 18:17] LABS: ALBUMIN 2.8 g/dL (3.4-5.0); BILIRUBIN,DIRECT 2.7 mg/dL (0.0-0.3); TOTAL BILIRUBIN 6.4 mg/dL (0.0-1.0); TOTAL PROTEIN, SERUM 6.5 g/dL (6.4-8.2)
[2024-03-04] MEDS ORDERED: DEXTROSE 50% 50 ML SYR IVP PRN (21:45)
[2024-03-04] MEDS ORDERED: ONDANSETRON 4 MG/2 ML VIAL IVP PRN (21:45)
[2024-03-04] MEDS ORDERED: ACETAMINOPHEN 325 MG TAB PO PRN (21:45)
[2024-03-04 23:53] LABS: APPEARANCE,URINE CLEAR (CLEAR); BILIRUBIN,URINE NEGATIVE (NEGATIVE); BLOOD, URINE TRACE-L (NEGATIVE); COLOR,URINE YELLOW (YELLOW); LEUKOCYTE ESTERASE ,URINE NEGATIVE (NEGATIVE); NITRITE, URINE NEGATIVE (NEGATIVE); PROTEIN,URINE NEGATIVE (NEGATIVE); UGLUCOSE 3+ (NEGATIVE); UROBILINOGEN,URINE 0.2 EU/dL (0.2 - 1)
[2024-03-04 23:59] LABS: BACTERIA,URINE 10-30 (MOD) /HPF (None Seen); MUCUS,URINE 1+ /LPF (None Seen); SQUAMOUS EPITHELIAL CELL,UR 4-10 (MOD) /LPF (0-3 (FEW)); WBC,URINE 0-5 /HPF (0-5)
[2024-03-05] MEDS: LEVOTHYROXINE 0.1 MG TAB PO SCH (06:34)
[2024-03-05 07:08] LABS: BASOPHILS % (AUTO) 0.9 % (0.0-2.0); EOSINOPHILS % (AUTO) 2.1 % (0.0-4.0); HEMATOCRIT 32.5 % (36-48); HEMOGLOBIN 11.7 g/dL (12.0-16.0); LYMPHOCYTES # (AUTO) 0.5 K/uL (2.5-16.5); LYMPHOCYTES % (AUTO) 24.4 % (20.5-51.1); MEAN CORPUSCULAR HEMOGLOBIN 37 pg (27-31); MEAN CORPUSCULAR HGB CONC 36 g/dL (33-37); MEAN CORPUSCULAR VOLUME 102.4 fL (80-94); MONOCYTES # (AUTO) 0.2 K/uL (0.8-1.0); NEUTROPHILS # (AUTO) 1.2 K/uL (1.8-7.7); NEUTROPHILS % (AUTO) 61.6 % (42.2-75.2); PLATELET COUNT (AUTO) 31 K/uL (140-450); RED BLOOD CELL COUNT(AUTO) 3.17 MIL/uL (4.20-5.40); RED CELL DISTRIBUTION WIDTH 16.9 % (11.6-13.7)
[2024-03-05 07:47] LABS: CALCIUM 8.7 mg/dL (8.5-10.1); CHLORIDE 107 mmol/L (98-107); CREATININE 0.9 mg/dL (0.6-1.3); GLUCOSE 149 mg/dL (74-106); POTASSIUM 4.3 mmol/L (3.5-5.1); SODIUM SERUM 137 mmol/L (136-145); UREA NITROGEN, BLOOD 10 mg/dL (7-18)
[2024-03-05] MEDS: BLOOD GLUCOSE MONITORING 1 DEV DEV FS SCH (07:55)
[2024-03-05 08:10] VITALS: BP 118/75; PULSE 70; PULSE 95; RESP 18; TEMP 98.1; O2SAT 96
[2024-03-05 08:55] LABS: ANION GAP 11.8 (8-16); CARBON DIOXIDE 22.5 mmol/L (21-32)
[2024-03-05] MEDS: LACTULOSE 20 GM/30 ML UDC PO SCH ×2 (09:02→12:50)
[2024-03-05] MEDS: CYCLOBENZAPRINE 10 MG TAB PO SCH (09:03)
[2024-03-05] MEDS: SPIRONOLACTONE 50 MG TAB PO SCH (09:03)
[2024-03-05] MEDS: methocarbamoL 500 MG TAB PO SCH (09:03)
[2024-03-05] MEDS ORDERED: methocarbamoL 500 MG TAB PO PRN ×2 (11:10→11:11)
[2024-03-05 12:00] VITALS: BP 113/75; PULSE 75; PULSE 77; RESP 18; TEMP 96.7; O2SAT 100
[2024-03-05] MEDS: INSULIN LISPRO SLIDING SCALE 100 UNITS/ML VIAL SUBQ PRN (12:59)
[2024-03-05] MEDS: NACL 0.9% 1,000 ML IV SCH (15:03)
[2024-03-05 16:00] VITALS: BP 110/51; PULSE 74; RESP 18; TEMP 97.3; O2SAT 98
[2024-03-05] MEDS: HYDROcodone/APAP 5/325 MG 1 TAB TAB PO PRN (20:23)
[2024-03-06 04:00] VITALS: BP 111/52; PULSE 70; RESP 16; TEMP 97.3; O2SAT 96
[2024-03-06 05:35] LABS: EOSINOPHILS % (AUTO) 2.2 % (0.0-4.0); HEMATOCRIT 32.5 % (36-48); HEMOGLOBIN 11.5 g/dL (12.0-16.0); LYMPHOCYTES # (AUTO) 0.5 K/uL (2.5-16.5); LYMPHOCYTES % (AUTO) 24.5 % (20.5-51.1); MEAN CORPUSCULAR HEMOGLOBIN 37 pg (27-31); MEAN CORPUSCULAR HGB CONC 35 g/dL (33-37); MEAN CORPUSCULAR VOLUME 103.5 fL (80-94); MONOCYTES # (AUTO) 0.2 K/uL (0.8-1.0); MONOCYTES % (AUTO) 11.3 % (1.7-9.3); NEUTROPHILS # (AUTO) 1.2 K/uL (1.8-7.7); PLATELET COUNT (AUTO) 31 K/uL (140-450); RED BLOOD CELL COUNT(AUTO) 3.14 MIL/uL (4.20-5.40); RED CELL DISTRIBUTION WIDTH 16.4 % (11.6-13.7)
[2024-03-06 05:50] LABS: ANION GAP 10.5 (8-16); CALCIUM 8.2 mg/dL (8.5-10.1); CARBON DIOXIDE 23.5 mmol/L (21-32); CHLORIDE 106 mmol/L (98-107); CREATININE 0.8 mg/dL (0.6-1.3); GLUCOSE 172 mg/dL (74-106); SODIUM SERUM 136 mmol/L (136-145); UREA NITROGEN, BLOOD 6 mg/dL (7-18)
[2024-03-06 13:36] VITALS: BP 98/49; PULSE 84; RESP 18; TEMP 97.1
== END 2024-03-06 15:25 | disposition home health service (06) | DRG 442 ==
LOC: MED 16:23 → MMU 21:43 → MTU 03-05 06:45
PROVIDERS: ADMIT Student in an Organized Health Care Education/Training Program; ATTEND Student in an Organized Health Care Education/Training Program
DX: K76.82 Hepatic encephalopathy (principal); R65.10 Systemic inflammatory response syndrome (SIRS) of non-infectious origin without acute organ dysfunction; K74.60 Unspecified cirrhosis of liver; E11.9 Type 2 diabetes mellitus without complications; N20.0 Calculus of kidney; K21.9 Gastro-esophageal reflux disease without esophagitis; Z79.899 Other long term (current) drug therapy; Z79.4 Long term (current) use of insulin
CPT/HCPCS: 36415; 71046; 80048; 80076; 81001; 82140; 82948; 83690; 83735; 85025; 85610; 85730; 87081; 87086; 97116; 97163-GP; 97530; 99285; J1815

== ENCOUNTER 2024-04-18 06:58 | Emergency (ER) | payer OTHER ==
[~2024-04-18] VITALS: Ht 167.6 cm; Wt 75.7 kg
[~2024-04-18 06:58] MED LIST changes: -CEPH500C16 PO
[2024-04-18 07:00] VITALS: BP 132/52; PULSE 79; RESP 18; TEMP 98.4; O2SAT 96
[2024-04-18] MEDS: KETOROLAC 30 MG/ML VIAL IM ONE (07:50)
[2024-04-18] MEDS: ACETAMINOPHEN EXTRA STRENGTH 500 MG TAB PO ONE (07:50)
[2024-04-18 08:18] VITALS: O2SAT 96
[2024-04-18] MEDS ORDERED: [UNRECOGNIZED DRUG - CODE] PO (09:18)
== END 2024-04-18 09:19 | disposition home or self-care (01) ==
LOC: MED 06:58
DX: K74.60 Unspecified cirrhosis of liver (principal); K80.20 Calculus of gallbladder without cholecystitis without obstruction; E11.9 Type 2 diabetes mellitus without complications; K21.9 Gastro-esophageal reflux disease without esophagitis; E03.9 Hypothyroidism, unspecified; Z87.448 Personal history of other diseases of urinary system; Z85.43 Personal history of malignant neoplasm of ovary; Z85.850 Personal history of malignant neoplasm of thyroid
CPT/HCPCS: 71250; 74176; 96372; 99285; J1885

== ENCOUNTER 2024-04-22 20:36 | Inpatient (IN) | payer OTHER ==
[~2024-04-22] VITALS: Ht 167.6 cm; Wt 72.6 kg
[~2024-04-22 20:36] MED LIST changes: +[UNRECOGNIZED DRUG - CODE] PO
[2024-04-22 20:44] VITALS: BP 136/54; PULSE 68; RESP 20; TEMP 97.4; O2SAT 98
[2024-04-22 21:46] LABS: BASOPHILS % (AUTO) 0.8 % (0.0-2.0); EOSINOPHILS # (AUTO) 0.1 K/uL (0-0.4); EOSINOPHILS % (AUTO) 3.4 % (0.0-4.0); HEMATOCRIT 34.7 % (36-48); HEMOGLOBIN 11.9 g/dL (12.0-16.0); LYMPHOCYTES # (AUTO) 0.6 K/uL (2.5-16.5); LYMPHOCYTES % (AUTO) 21.1 % (20.5-51.1); MEAN CORPUSCULAR HEMOGLOBIN 38 pg (27-31); MEAN CORPUSCULAR HGB CONC 34 g/dL (33-37); MEAN CORPUSCULAR VOLUME 109.6 fL (80-94); MONOCYTES # (AUTO) 0.3 K/uL (0.8-1.0); MONOCYTES % (AUTO) 11.1 % (1.7-9.3); NEUTROPHILS # (AUTO) 1.9 K/uL (1.8-7.7); NEUTROPHILS % (AUTO) 63.6 % (42.2-75.2); PLATELET COUNT (AUTO) 77 K/uL (140-450); RED BLOOD CELL COUNT(AUTO) 3.17 MIL/uL (4.20-5.40); RED CELL DISTRIBUTION WIDTH 16.1 % (11.6-13.7); WHITE BLOOD COUNT (AUTO) 2.9 K/uL (4.8-10.8)
[2024-04-22 21:54] LABS: INR 1.29 (0.8-1.2); PROTHROMBIN TIME 13.3 secs (10.8-13.4)
[2024-04-22 21:56] LABS: CALCIUM 8.9 mg/dL (8.5-10.1); CARBON DIOXIDE 22.2 mmol/L (21-32); CHLORIDE 107 mmol/L (98-107); CREATININE 0.9 mg/dL (0.6-1.3); GLUCOSE 206 mg/dL (74-106); POTASSIUM 4.2 mmol/L (3.5-5.1); SODIUM SERUM 138 mmol/L (136-145); UREA NITROGEN, BLOOD 11 mg/dL (7-18)
[2024-04-22 22:08] LABS: ALANINE AMINOTRANSFERASE 44 U/L (12-78); ALBUMIN 2.2 g/dL (3.4-5.0); ALKALINE PHOSPHATASE 275 U/L (50-136); ASPARTATE AMINOTRANSFERASE 36 U/L (15-37); BILIRUBIN,DIRECT 2.5 mg/dL (0.0-0.3); LIPASE 86 U/L (16-77); TOTAL BILIRUBIN 4.3 mg/dL (0.0-1.0); TOTAL PROTEIN, SERUM 6.1 g/dL (6.4-8.2)
[2024-04-22] MEDS: KETOROLAC 30 MG/ML VIAL IVP ONE (23:42)
[2024-04-23 00:11] LABS: APPEARANCE,URINE CLEAR (CLEAR); BILIRUBIN,URINE 1+ (NEGATIVE); BLOOD, URINE NEGATIVE (NEGATIVE); COLOR,URINE YELLOW (YELLOW); LEUKOCYTE ESTERASE ,URINE NEGATIVE (NEGATIVE); NITRITE, URINE NEGATIVE (NEGATIVE); PROTEIN,URINE NEGATIVE (NEGATIVE); UGLUCOSE 3+ (NEGATIVE); UROBILINOGEN,URINE 0.2 EU/dL (0.2 - 1)
[2024-04-23 00:12] LABS: ICTOTEST POSITIVE (NEGATIVE)
[2024-04-23] MEDS ORDERED: ONDANSETRON 4 MG/2 ML VIAL IVP PRN (02:00)
[2024-04-23] MEDS ORDERED: methocarbamoL 500 MG TAB PO PRN (02:05)
[2024-04-23] MEDS ORDERED: IBUPROFEN 600 MG TAB PO PRN (02:05)
[2024-04-23 04:20] VITALS: PULSE 76; PULSE 80; RESP 18; O2SAT 98
[2024-04-23 05:20] LABS: BASOPHILS % (AUTO) 1.1 % (0.0-2.0); EOSINOPHILS # (AUTO) 0.1 K/uL (0-0.4); EOSINOPHILS % (AUTO) 1.6 % (0.0-4.0); HEMOGLOBIN 10.3 g/dL (12.0-16.0); LYMPHOCYTES # (AUTO) 0.5 K/uL (2.5-16.5); LYMPHOCYTES % (AUTO) 13.2 % (20.5-51.1); MEAN CORPUSCULAR HEMOGLOBIN 38 pg (27-31); MEAN CORPUSCULAR HGB CONC 34 g/dL (33-37); MEAN CORPUSCULAR VOLUME 110.9 fL (80-94); MONOCYTES # (AUTO) 0.4 K/uL (0.8-1.0); MONOCYTES % (AUTO) 10.3 % (1.7-9.3); NEUTROPHILS # (AUTO) 2.8 K/uL (1.8-7.7); NEUTROPHILS % (AUTO) 73.8 % (42.2-75.2); PLATELET COUNT (AUTO) 64 K/uL (140-450); RED BLOOD CELL COUNT(AUTO) 2.71 MIL/uL (4.20-5.40); RED CELL DISTRIBUTION WIDTH 16.2 % (11.6-13.7); WHITE BLOOD COUNT (AUTO) 3.8 K/uL (4.8-10.8)
[2024-04-23 05:23] LABS: ANION GAP 14.8 (8-16); CALCIUM 8.6 mg/dL (8.5-10.1); CARBON DIOXIDE 18.9 mmol/L (21-32); CHLORIDE 106 mmol/L (98-107); CREATININE 1.1 mg/dL (0.6-1.3); GLUCOSE 334 mg/dL (74-106); POTASSIUM 4.7 mmol/L (3.5-5.1); SODIUM SERUM 135 mmol/L (136-145); UREA NITROGEN, BLOOD 13 mg/dL (7-18)
[2024-04-23] MEDS ORDERED: GAUZE TP PRN (05:25)
[2024-04-23 05:36] LABS: MAGNESIUM 1.9 mg/dL (1.8-2.4); PHOSPHORUS 3.2 mg/dL (2.5-4.9)
[2024-04-23] MEDS: LEVOTHYROXINE 0.1 MG TAB PO SCH (06:30)
[2024-04-23] MEDS: BLOOD GLUCOSE MONITORING 1 DEV DEV FS SCH (06:37)
[2024-04-23] MEDS: NACL 0.9% IRR 250 ML BOTTLE IR SCH (07:23)
[2024-04-23 08:00] VITALS: BP 133/51; PULSE 73; RESP 18; TEMP 98.2; O2SAT 99
[2024-04-23] MEDS: LACTULOSE 20 GM/30 ML UDC PO SCH (08:43)
[2024-04-23] MEDS: CHOLECALCIFEROL 1,000 IU TAB PO SCH (08:43)
[2024-04-23] MEDS: CYCLOBENZAPRINE 10 MG TAB PO SCH (08:44)
[2024-04-23] MEDS: INSULIN LANTUS 100 UNITS/ML 10 ML VIAL SUBQ SCH (08:45)
[2024-04-23] MEDS: SPIRONOLACTONE 50 MG TAB PO SCH (08:45)
[2024-04-23] MEDS: INSULIN LISPRO SLIDING SCALE 100 UNITS/ML VIAL SUBQ PRN (08:46)
[2024-04-23] MEDS ORDERED: LACTULOSE 20 GM/30 ML UDC PO ONE (09:00)
[2024-04-23] MEDS ORDERED: CAPSAICIN TP SCH (09:00)
[2024-04-23] MEDS ORDERED: MENTHOL TP SCH (09:00)
[2024-04-23 11:53] VITALS: BP 130/50; PULSE 78; RESP 18; TEMP 97.8; O2SAT 100
[2024-04-23 12:00] VITALS: PULSE 72
[2024-04-23 16:00] VITALS: BP 124/56; PULSE 76; PULSE 80; RESP 18; TEMP 98; O2SAT 98
[2024-04-23 20:00] VITALS: BP 118/52; PULSE 80; RESP 18; TEMP 97.9; O2SAT 98
[2024-04-23] MEDS: CRUSHER, PILL MC ONE (20:58)
[2024-04-24] VITALS: BP 136/84; PULSE 82; RESP 18; TEMP 97.4; O2SAT 94
[2024-04-24 04:00] VITALS: BP 129/53; PULSE 81; PULSE 82; RESP 18; TEMP 97.4; O2SAT 99
[2024-04-24 05:45] LABS: BASOPHILS % (AUTO) 0.7 % (0.0-2.0); EOSINOPHILS # (AUTO) 0.1 K/uL (0-0.4); EOSINOPHILS % (AUTO) 2.3 % (0.0-4.0); HEMATOCRIT 27.8 % (36-48); HEMOGLOBIN 9.7 g/dL (12.0-16.0); LYMPHOCYTES # (AUTO) 0.5 K/uL (2.5-16.5); LYMPHOCYTES % (AUTO) 10.7 % (20.5-51.1); MEAN CORPUSCULAR HEMOGLOBIN 38 pg (27-31); MEAN CORPUSCULAR HGB CONC 35 g/dL (33-37); MEAN CORPUSCULAR VOLUME 109.4 fL (80-94); MONOCYTES # (AUTO) 0.5 K/uL (0.8-1.0); MONOCYTES % (AUTO) 11.2 % (1.7-9.3); NEUTROPHILS # (AUTO) 3.4 K/uL (1.8-7.7); NEUTROPHILS % (AUTO) 75.1 % (42.2-75.2); PLATELET COUNT (AUTO) 69 K/uL (140-450); RED BLOOD CELL COUNT(AUTO) 2.54 MIL/uL (4.20-5.40); RED CELL DISTRIBUTION WIDTH 15.7 % (11.6-13.7); WHITE BLOOD COUNT (AUTO) 4.5 K/uL (4.8-10.8)
[2024-04-24 06:09] LABS: ANION GAP 11.8 (8-16); CALCIUM 8.5 mg/dL (8.5-10.1); CARBON DIOXIDE 20.8 mmol/L (21-32); CHLORIDE 108 mmol/L (98-107); GLUCOSE 182 mg/dL (74-106); POTASSIUM 4.6 mmol/L (3.5-5.1); SODIUM SERUM 136 mmol/L (136-145); UREA NITROGEN, BLOOD 15 mg/dL (7-18)
[2024-04-24 08:00] VITALS: BP 133/54; PULSE 83; RESP 18; TEMP 97.9; O2SAT 100; O2SAT 98
[2024-04-24 11:32] VITALS: BP 133/54; PULSE 83; RESP 18; TEMP 97.9
[2024-04-24] MEDS: SENNA 8.6 MG TAB PO SCH (11:55)
[2024-04-24] MEDS ORDERED: NON ADHERENT DRESSING TP PRN (13:05)
[2024-04-24 16:29] VITALS: BP 135/54; PULSE 86; RESP 18; TEMP 99.1; O2SAT 99
[2024-04-24 20:00] VITALS: BP 138/64; PULSE 94; RESP 18; TEMP 99.4; O2SAT 100; O2SAT 95
[2024-04-25 04:00] VITALS: BP 132/53; PULSE 83; RESP 18; TEMP 98.1; O2SAT 99
[2024-04-25 05:36] LABS: BASOPHILS % (AUTO) 0.3 % (0.0-2.0); EOSINOPHILS # (AUTO) 0.1 K/uL (0-0.4); EOSINOPHILS % (AUTO) 1.8 % (0.0-4.0); HEMATOCRIT 28.1 % (36-48); HEMOGLOBIN 9.9 g/dL (12.0-16.0); LYMPHOCYTES # (AUTO) 0.7 K/uL (2.5-16.5); LYMPHOCYTES % (AUTO) 10.2 % (20.5-51.1); MEAN CORPUSCULAR HEMOGLOBIN 38 pg (27-31); MEAN CORPUSCULAR HGB CONC 35 g/dL (33-37); MEAN CORPUSCULAR VOLUME 108.7 fL (80-94); MONOCYTES # (AUTO) 0.9 K/uL (0.8-1.0); MONOCYTES % (AUTO) 12.4 % (1.7-9.3); NEUTROPHILS # (AUTO) 5.4 K/uL (1.8-7.7); NEUTROPHILS % (AUTO) 75.3 % (42.2-75.2); PLATELET COUNT (AUTO) 77 K/uL (140-450); RED BLOOD CELL COUNT(AUTO) 2.59 MIL/uL (4.20-5.40); RED CELL DISTRIBUTION WIDTH 15.7 % (11.6-13.7); WHITE BLOOD COUNT (AUTO) 7.2 K/uL (4.8-10.8)
[2024-04-25 06:12] LABS: ANION GAP 12.7 (8-16); CALCIUM 8.9 mg/dL (8.5-10.1); CHLORIDE 104 mmol/L (98-107); CREATININE 1.1 mg/dL (0.6-1.3); GLUCOSE 232 mg/dL (74-106); POTASSIUM 4.7 mmol/L (3.5-5.1); SODIUM SERUM 132 mmol/L (136-145); UREA NITROGEN, BLOOD 13 mg/dL (7-18)
[2024-04-25 08:00] VITALS: BP 126/52; PULSE 84; RESP 18; TEMP 97.4; O2SAT 97
[2024-04-25] MEDS: NON ADHERENT DRESSING TP SCH (12:35)
[2024-04-25] MEDS: LIDOCAINE 5% 1 EA PATCH TP SCH (15:43)
[2024-04-25 16:00] VITALS: BP 133/57; PULSE 85; RESP 18; TEMP 98.2; O2SAT 98
[2024-04-25 20:00] VITALS: BP 136/61; PULSE 90; RESP 18; TEMP 98.2; O2SAT 100; O2SAT 97
[2024-04-26] VITALS: BP 131/58; PULSE 95; RESP 18; TEMP 97.8; O2SAT 95
[2024-04-26 05:44] LABS: BASOPHILS % (AUTO) 0.4 % (0.0-2.0); EOSINOPHILS # (AUTO) 0.1 K/uL (0-0.4); EOSINOPHILS % (AUTO) 2.1 % (0.0-4.0); HEMOGLOBIN 9.2 g/dL (12.0-16.0); LYMPHOCYTES # (AUTO) 0.7 K/uL (2.5-16.5); LYMPHOCYTES % (AUTO) 9.7 % (20.5-51.1); MEAN CORPUSCULAR HEMOGLOBIN 38 pg (27-31); MEAN CORPUSCULAR HGB CONC 35 g/dL (33-37); MEAN CORPUSCULAR VOLUME 108.5 fL (80-94); MONOCYTES % (AUTO) 14.2 % (1.7-9.3); NEUTROPHILS % (AUTO) 73.6 % (42.2-75.2); PLATELET COUNT (AUTO) 79 K/uL (140-450); RED CELL DISTRIBUTION WIDTH 15.9 % (11.6-13.7); WHITE BLOOD COUNT (AUTO) 6.8 K/uL (4.8-10.8)
[2024-04-26 05:56] LABS: ANION GAP 10.6 (8-16); CALCIUM 8.6 mg/dL (8.5-10.1); CARBON DIOXIDE 21.1 mmol/L (21-32); CHLORIDE 102 mmol/L (98-107); CREATININE 1.1 mg/dL (0.6-1.3); GLUCOSE 295 mg/dL (74-106); POTASSIUM 4.7 mmol/L (3.5-5.1); SODIUM SERUM 129 mmol/L (136-145); UREA NITROGEN, BLOOD 14 mg/dL (7-18)
[2024-04-26 08:00] VITALS: BP 122/53; PULSE 89; RESP 18; TEMP 97.5; O2SAT 100
[2024-04-26] MEDS: traMADol 50 MG TAB PO PRN (11:36)
[2024-04-26 16:00] VITALS: BP 123/55; PULSE 90; RESP 18; TEMP 98.2; O2SAT 100
[2024-04-27] VITALS: BP 131/58; PULSE 85; RESP 18; TEMP 97.7; O2SAT 95
[2024-04-27 07:06] LABS: BASOPHILS # (AUTO) 0.1 K/uL (0.00-0.22); BASOPHILS % (AUTO) 0.9 % (0.0-2.0); EOSINOPHILS # (AUTO) 0.1 K/uL (0-0.4); EOSINOPHILS % (AUTO) 2.5 % (0.0-4.0); HEMATOCRIT 24.9 % (36-48); HEMOGLOBIN 8.9 g/dL (12.0-16.0); LYMPHOCYTES # (AUTO) 0.6 K/uL (2.5-16.5); LYMPHOCYTES % (AUTO) 11.2 % (20.5-51.1); MEAN CORPUSCULAR HEMOGLOBIN 39 pg (27-31); MEAN CORPUSCULAR HGB CONC 36 g/dL (33-37); MEAN CORPUSCULAR VOLUME 107.7 fL (80-94); MONOCYTES # (AUTO) 0.9 K/uL (0.8-1.0); MONOCYTES % (AUTO) 15.5 % (1.7-9.3); NEUTROPHILS % (AUTO) 69.9 % (42.2-75.2); PLATELET COUNT (AUTO) 78 K/uL (140-450); RED BLOOD CELL COUNT(AUTO) 2.32 MIL/uL (4.20-5.40); RED CELL DISTRIBUTION WIDTH 15.8 % (11.6-13.7); WHITE BLOOD COUNT (AUTO) 5.8 K/uL (4.8-10.8)
[2024-04-27 07:19] LABS: ANION GAP 11.7 (8-16); CALCIUM 8.5 mg/dL (8.5-10.1); CARBON DIOXIDE 19.9 mmol/L (21-32); CHLORIDE 102 mmol/L (98-107); GLUCOSE 269 mg/dL (74-106); POTASSIUM 4.6 mmol/L (3.5-5.1); SODIUM SERUM 129 mmol/L (136-145); UREA NITROGEN, BLOOD 15 mg/dL (7-18)
[2024-04-27 08:00] VITALS: BP 123/59; PULSE 88; RESP 18; TEMP 96.9; O2SAT 98
[2024-04-27] MEDS ORDERED: LACT10SO11 PO (11:23)
[2024-04-27] MEDS ORDERED: TRAM-748 PO (11:23)
[2024-04-27 15:04] VITALS: BP 123/69; PULSE 88; RESP 18; TEMP 98.7
== END 2024-04-27 15:53 | DRG 441 ==
LOC: MED 20:36 → MTU 04-23 01:56
PROVIDERS: ADMIT Student in an Organized Health Care Education/Training Program; ATTEND Student in an Organized Health Care Education/Training Program
DX: K76.82 Hepatic encephalopathy (principal); E43 Unspecified severe protein-calorie malnutrition; S42.301A Unspecified fracture of shaft of humerus, right arm, initial encounter for closed fracture; R65.10 Systemic inflammatory response syndrome (SIRS) of non-infectious origin without acute organ dysfunction; S40.211A Abrasion of right shoulder, initial encounter; K21.9 Gastro-esophageal reflux disease without esophagitis; E11.9 Type 2 diabetes mellitus without complications; Z79.899 Other long term (current) drug therapy; Z79.4 Long term (current) use of insulin; W19.XXXA Unspecified fall, initial encounter; Y93.89 Activity, other specified; Y92.89 Other specified places as the place of occurrence of the external cause; Y99.8 Other external cause status; Z68.25 Body mass index [BMI] 25.0-25.9, adult
CPT/HCPCS: 36415; 70450; 71045; 72125; 73030; 80048; 80076; 81003; 82140; 82948; 83690; 83735; 84100; 84484; 85025; 85610; 87081; 93005; 96374; 97163-GP; 97530; 99285; J1815; J1885